=== PATIENT | female | born 1935 | race Caucasian/White ===

== ENCOUNTER 2018-03-31 05:20 | Emergency (ER) | payer MEDICARE ==
[~2018-03-31] VITALS: Ht 157.5 cm; Wt 77.6 kg
[~2018-03-31 05:20] MED LIST: ASPI-482 PO; CYAN100072 PO; DONE5TAB7 PO; GUAR1PAC2 PO; LEVO100T5 PO; LOSA1TAB22 PO; LOVA40TA2 PO; MEMA28CA PO; VERA180C4 PO
[2018-03-31] MEDS ORDERED: LORA10TA3 PO (06:21)
[2018-03-31] MEDS ORDERED: FURO-68 PO (06:28)
[2018-03-31] MEDS ORDERED: BUDE10.2 IH (06:28)
[2018-03-31] MEDS ORDERED: DIGO125T PO (06:28)
[2018-03-31] MEDS ORDERED: RIVA15TA PO (06:28)
[2018-03-31] MEDS ORDERED: ALBU2.5V5 NEB (06:28)
[2018-03-31] MEDS ORDERED: SIMV10TA3 PO (06:28)
[2018-03-31] MEDS ORDERED: TIOT18CA IH (06:28)
[2018-03-31] MEDS ORDERED: LOSA1TAB22 PO (06:41)
[2018-03-31] MEDS ORDERED: MEMA10TA PO (06:41)
[2018-03-31] MEDS ORDERED: LOVA40TA2 PO (06:41)
--- NOTE | 2018-03-31 06:50 | PHYS DOC ---
Past Medical History Past Medical History: High Cholesterol, Hypertension Past Surgical History: Appendectomy, Hysterectomy Alcohol Use: None Drug Use: None Adult General Chief Complaint Chief Complaint: [facility] HPI Patient is a 82 year old female was presenting with cough 1 week last 2 days it is more yellow sputum she feels lightheaded when she coughs a lot no chest pain no fever that she knows of she also loses some urine with coughing because the cough is becoming more severe so the son wanted her to come in to get checked out. Patient does not smoke and really never has. Symptoms are mild and slowly getting worse son did have some similar symptoms earlier Review of Systems Review of Systems Constitutional: Denies fever or chills [] Eyes: Denies change in visual acuity, redness, or eye pain [] Cardiovascular: No additional information not addressed in HPI [] GI: Denies abdominal pain, nausea, vomiting, bloody stools or diarrhea [] Musculoskeletal: Denies back pain or joint pain [] Integument: Denies rash or skin lesions [] Neurologic: Denies headache, focal weakness or sensory changes [] Endocrine: Denies polyuria or polydipsia [] All other systems were reviewed and found to be within normal limits, except as documented in this note. Allergies Allergies Allergies Coded Allergies Type Severity Reaction Last Updated Verified NSAIDS (Non-Steroidal Anti-Inflamma Adverse Reaction Intermediate renal disease 12/10/14 No acetaminophen Adverse Reaction Intermediate confusion able to take lortab and oxycontin 12/10/14 Yes morphine Adverse Reaction Intermediate confusion 12/10/14 No oxycodone Adverse Reaction Intermediate confusion able to take lortab and oxycontin 12/10/14 Yes tramadol Adverse Reaction Intermediate confusion 12/10/14 No Physical Exam Physical Exam Constitutional: Well developed, well nourished, no acute distress, non-toxic appearance. [] HENT: Normocephalic, atraumatic, bilateral external ears normal, oropharynx moist, no oral exudates, nose normal. [] Eyes: PERRLA, EOMI, conjunctiva normal, no discharge. [] Neck: Normal range of motion, no tenderness, supple, no stridor. [] Cardiovascular:Heart rate regular rhythm, no murmur [] Lungs & Thorax: Lungs are clear bilaterally Abdomen: Normal, soft, no tenderness, no masses, no pulsatile masses. [] Skin: Warm, dry, no erythema, no rash. [] Back: No tenderness, no CVA tenderness. [] Extremities: No tenderness, no cyanosis, no clubbing, ROM intact, no edema. [] Neurologic: Alert and oriented X 3, normal motor function, normal sensory function, no focal deficits noted. [] Psychologic: Affect normal, judgement normal, mood normal. [] Current Patient Data Vital Signs Vital Signs Date Time Temp Pulse Resp B/P (MAP) Pulse Ox O2 Delivery O2 Flow Rate FiO2 03/31/18 05:30 97.9 88 20 158/79 (105) 96 Room Air 97.9 Lab Values Laboratory Tests Test 03/31/18 07:30 White Blood Count 12.4 x10^3/uL (4.0-11.0) H Red Blood Count 4.14 x10^6/uL (3.50-5.40) Hemoglobin 13.1 g/dL (12.0-15.5) Hematocrit 38.8 % (36.0-47.0) Mean Corpuscular Volume 94 fL (79-100) Mean Corpuscular Hemoglobin 32 pg (25-35) Mean Corpuscular Hemoglobin Concent 34 g/dL (31-37) Red Cell Distribution Width 13.0 % (11.5-14.5) Platelet Count 328 x10^3/uL (140-400) Neutrophils (%) (Auto) 69 % (31-73) Lymphocytes (%) (Auto) 22 % (24-48) L Monocytes (%) (Auto) 7 % (0-9) Eosinophils (%) (Auto) 2 % (0-3) Basophils (%) (Auto) 1 % (0-3) Neutrophils # (Auto) 8.5 x10^3uL (1.8-7.7) H Lymphocytes # (Auto) 2.7 x10^3/uL (1.0-4.8) Monocytes # (Auto) 0.8 x10^3/uL (0.0-1.1) Eosinophils # (Auto) 0.2 x10^3/uL (0.0-0.7) Basophils # (Auto) 0.1 x10^3/uL (0.0-0.2) Sodium Level 138 mmol/L (136-145) Potassium Level 3.4 mmol/L (3.5-5.1) L Chloride Level 99 mmol/L (98-107) Carbon Dioxide Level 29 mmol/L (21-32) Anion Gap 10 (6-14) Blood Urea Nitrogen 23 mg/dL (7-20) H Creatinine 1.3 mg/dL (0.6-1.0) H Estimated GFR (Cockcroft-Gault) 39.3 BUN/Creatinine Ratio 18 (6-20) Glucose Level 145 mg/dL (70-99) H Calcium Level 10.7 mg/dL (8.5-10.1) H Total Bilirubin 0.5 mg/dL (0.2-1.0) Aspartate Amino Transferase (AST) 19 U/L (15-37) Alanine Aminotransferase (ALT) 23 U/L (14-59) Alkaline Phosphatase 75 U/L (46-116) Troponin I Quantitative < 0.017 ng/mL (0.000-0.055) JO-Mna-N-Type Natriuretic Peptide 70 pg/mL (0-449) Total Protein 7.7 g/dL (6.4-8.2) Albumin 3.6 g/dL (3.4-5.0) Albumin/Globulin Ratio 0.9 (1.0-1.7) L Laboratory Tests 03/31/18 07:30 Laboratory Tests 03/31/18 07:30 EKG EKG [] Interpretation Time: Normal sinus rhythm rate of 79 no obvious acute ischemic changes noted the intervals are normal this was interpreted by me the time of encounter there were some nonspecific changes diffusely Radiology/Procedures Radiology/Procedures [] Impressions: Comparison is made to a study from 11/18/2014. There is chronic elevation of the right hemidiaphragm. The heart size is normal. There is calcific plaquing of the aorta. The pulmonary vascularity is normal. No pulmonary infiltrate is seen. There is no evidence of pleural fluid. IMPRESSION: No acute cardiopulmonary abnormality is detected. Electronically signed by: Uche Zapien MD (03/31/2018 7:41 AM) [facility] DICTATED and SIGNED BY: UCHE ZAPIEN MD DATE: 03/31/18 0739 Course & Med Decision Making Course & Med Decision Making Pertinent Labs and Imaging studies reviewed. (See chart for details) []This is an 82-year-old female with the above past medical history who is presenting with 2 days of cough occasional yellow sputum and also some what sounds like stress incontinence with coughing. Lungs are essentially clear chest x-ray negative acute. Patient has normal oxygenation she is breathing comfortably in the emergency room her lab work is essentially unremarkable except for mild renal insufficiency she looks a little dry and encouraged oral hydration Tessalon Perles given return precautions discussed We specifically discussed the possibility of worsening condition and she has fever or worsening shortness of breath she might have to come back for antibiotics but at this time I did not feel that they were indicated in light of the side effect profile and SON agrees Dragon Disclaimer Dragon Disclaimer This electronic medical record was generated, in whole or in part, using a voice recognition dictation system. Departure Departure Impression: Primary Impression: Cough Disposition: 01 HOME, SELF-CARE Condition: STABLE Referrals: SHANI CARDENAS MD (PCP) Scripts Benzonatate (TESSALON PERLE) 100 Mg Capsule 1 CAP PO TID, #21 CAP Prov: ISAAC BOOTHE MD 03/31/18 ISAAC BOOTHE MD Mar 31, 2018 06:50
--- NOTE | 2018-03-31 07:16 | EKG ---
[facility] [address] [place] [address] Test Date: 2018-03-31 Test Time: 06:50:40 Pat Name: PIETRO WATKINS Department: Room: Gender: F Content Strategist: : 1935 Requested By: ISAAC BOOTHE Order Number: [id number] Reading MD: Amador Santiago MD Measurements Intervals [place] Rate: 79 P: 52 [place]: 176 QRS: -38 QRSD: 80 T: 39 QT: 380 QTc: 437 Interpretive Statements SINUS RHYTHM INFERIOR INFARCT Electronically Signed On 04-04-2018 11:52:43 CDT by Amador Santiago MD
--- NOTE | 2018-03-31 07:44 | RAD ---
Portable chest, 03/31/2018: HISTORY: Cough Comparison is made to a study from 11/18/2014. There is chronic elevation of the right hemidiaphragm. The heart size is normal. There is calcific plaquing of the aorta. The pulmonary vascularity is normal. No pulmonary infiltrate is seen. There is no evidence of pleural fluid. IMPRESSION: No acute cardiopulmonary abnormality is detected. Electronically signed by: Uche Zapien MD (03/31/2018 7:41 AM) [facility]
[2018-03-31 07:56] LABS: BASO # 0.1 x10^3/uL (0.0-0.2); BASO % 1 % (0-3); EOS # 0.2 x10^3/uL (0.0-0.7); EOS % 2 % (0-3); HEMATOCRIT 38.8 % (36.0-47.0); HEMOGLOBIN 13.1 g/dL (12.0-15.5); LYMPH # 2.7 x10^3/uL (1.0-4.8); LYMPH % 22 % (24-48); MEAN CORPUSCULAR HEMOGLOBIN 32 pg (25-35); MEAN CORPUSCULAR HGB CONC 34 g/dL (31-37); MEAN CORPUSCULAR VOLUME 94 fL (79-100); MONO # 0.8 x10^3/uL (0.0-1.1); MONO % 7 % (0-9); NEUT # 8.5 x10^3uL (1.8-7.7); NEUT % 69 % (31-73); PLATELET COUNT 328 x10^3/uL (140-400); RED BLOOD COUNT 4.14 x10^6/uL (3.50-5.40); WHITE BLOOD COUNT 12.4 x10^3/uL (4.0-11.0)
[2018-03-31 07:59] LABS: CALCIUM 10.7 mg/dL (8.5-10.1); CREATININE 1.3 mg/dL (0.6-1.0); GFR 39.3; POTASSIUM 3.4 mmol/L (3.5-5.1)
[2018-03-31 08:03] LABS: ALBUMIN 3.6 g/dL (3.4-5.0); ALBUMIN/GLOBULIN RATIO 0.9 (1.0-1.7); TOTAL BILIRUBIN 0.5 mg/dL (0.2-1.0); TOTAL PROTEIN 7.7 g/dL (6.4-8.2)
[2018-03-31 08:20] VITALS: BP 144/69
[2018-03-31] MEDS ORDERED: BENZ100C PO (08:36)
== END 2018-03-31 08:50 | disposition home or self-care (01) ==
LOC: ER 05:20
DX: R05 Cough (principal); R42 Dizziness and giddiness; I10 Essential (primary) hypertension; E78.00 Pure hypercholesterolemia, unspecified; Z88.5 Allergy status to narcotic agent; Z88.6 Allergy status to analgesic agent; Z88.8 Allergy status to other drugs, medicaments and biological substances
CPT/HCPCS: 36415; 71045; 80053; 83880; 84484; 85025; 93005; 99285-25

== ENCOUNTER 2021-06-07 22:12 | Inpatient (IN) | payer MEDICARE, OTHER ==
[~2021-06-07] VITALS: Ht 154.9 cm; Wt 73.7 kg
[~2021-06-07 22:12] MED LIST changes: +ALBU2.5V5 NEB; +BENZ100C PO; +BUDE10.2 IH; +DIGO125T3 PO; +FURO-68 PO; +LORA10TA3 PO; +MEMA10TA PO; +RIVA15TA PO; +SIMV10TA15 PO; +TIOT18CA IH
--- NOTE | 2021-06-07 23:19 | PHYS DOC ---
Past Medical History Past Medical History: High Cholesterol, Hypertension Additional Past Medical Histor: DEMENTIA Past Surgical History: Appendectomy, Hysterectomy Smoking Status: Never Smoker Alcohol Use: None Drug Use: None General Adult EDM: Chief Complaint: SHOULDER INJURY HPI: HPI: History of present illness limited due to altered mental status secondary to dementia. Daughter in room providing most of history. Patient is an 85-year-old female with past medical history of dementia, hypertension, hyperlipidemia, CKD presenting for mechanical fall earlier today. Daughter states that patient was unloading her suitcase and fell over and hit her right shoulder on something. This was unwitnessed, but the son saw her take a few steps and sit on the couch. Patient is complaining of right shoulder pain that is dull in nature and worse with movement. She denies chest pain, shortness of breath, and loss of consciousness. Denies use of blood thinners and denies hitting her head. Review of Systems: Review of Systems: Constitutional: Denies fever or chills HENT: Denies nasal congestion or sore throat Respiratory: Denies cough or shortness of breath Cardiovascular: Denies chest pain or palpitations GI: Denies abdominal pain, nausea, or vomiting : Denies dysuria or hematuria Musculoskeletal: Denies back pain; reports shoulder pain Integument: Denies rash or skin lesions Neurologic: Denies headache, focal weakness or sensory changes Complete systems were reviewed and found to be within normal limits, except as documented in this note. Heart Score: C/O Chest Pain: No Allergies: Allergies: Allergies Coded Allergies Type Severity Reaction Last Updated Verified NSAIDS (Non-Steroidal Anti-Inflamma Adverse Reaction Intermediate renal disease 12/10/14 No acetaminophen Adverse Reaction Intermediate confusion able to take lortab and oxycontin 12/10/14 Yes morphine Adverse Reaction Intermediate confusion 12/10/14 No oxycodone Adverse Reaction Intermediate confusion able to take lortab and oxycontin 12/10/14 Yes tramadol Adverse Reaction Intermediate confusion 12/10/14 No Physical Exam: PE: Constitutional: Well developed, well nourished, no acute distress, non-toxic appearance HENT: Normocephalic, atraumatic Eyes: EOMI, conjunctiva normal, no discharge Neck: No midline tenderness to palpation, supple Lungs & Thorax: No respiratory distress, equal chest rise and fall Abdomen: Soft, no tenderness Skin: Warm, dry, no erythema, no rash Back: No tenderness, no CVA tenderness Extremities: No tenderness, no edema, able to move all extremities, +2/2 radial pulses b/l Neurologic: Alert and oriented X 2, secondary to dementia no focal deficits n oted Psychologic: Affect normal, judgment normal Current Patient Data: Vital Signs: Vital Signs Date Time Temp Pulse Resp B/P (MAP) Pulse Ox O2 Delivery O2 Flow Rate FiO2 06/07/21 22:15 98.1 104 16 169/73 (105) 98 Room Air 98.1 EKG: EKG: Completed at 01:24, sinus tachycardia at a rate of 105 bpm, no acute ST segment changes, QRS 74 ms, QT/QTc 340/453 ms Radiology/Procedures: Radiology/Procedures: PROCEDURE: CT HEAD AND CERVICAL SPINE [facility] Compliance Statement: One or more of the following individualized dose reduction techniques were utilized for this examination: 1. Automated exposure control 2. Adjustment of the mA and/or kV according to patient size 3. Use of iterative reconstruction technique CT HEAD AND CERVICAL SPINE WITHOUT CONTRAST History: Reason: pain s/p fall Comparison: None. Procedure: Axial images are obtained of the head from the skull base through the vertex without IV contrast. Noncontrast helical CT of the cervical spine was performed. Axial, sagittal, and coronal reconstructions were obtained. Findings: The ventricles and sulci are prominent, consistent with age-related cerebral atrophy. There is moderate periventricular white matter hypoattenuation. This is a nonspecific finding but is commonly due to chronic small vessel ischemic disease in a patient of this age. No mass-effect, midline shift, hemorrhage or obvious acute infarction is identified. Basilar cisterns are patent. Bone windows demonstrate no significant calvarial abnormality. The visualized paranasal sinuses are clear. Mastoid air cells are well aerated. There is no evidence of acute fracture or acute malalignment of the cervical sp ine. There is moderate multilevel facet hypertrophy. The alignment is maintained. Vacuum disc phenomenon of C6/C7. There is acute traumatic mildly comminuted, nondisplaced fracture of the medial right clavicle. No sternoclavicular dislocation is appreciated. Bilateral carotid artery calcifications. The visualized lung apices are clear. IMPRESSION: 1. No acute intracranial abnormality. 2. No acute fracture of the cervical spine. 3. Acute traumatic mildly comminuted, nondisplaced fracture of the medial clavicle. PROCEDURE: SHOULDER 2+V RIGHT XR SHOULDER_RIGHT 2+ VIEWS Clinical Indication: Reason: pain s/p fall / Spl. Instructions: / History: Comparison: None. Findings: There is acute traumatic comminuted fracture of the proximal humeral head. There is a transverse fracture line that is mildly impacted of the surgical neck. There is fracture of the greater tuberosity. Additional fracture lines of the humeral head are suspected. There is no dislocation. Fracture of the medial clavicle noted on CT is not well appreciated radiographically. The right lung appears clear. Soft tissues unremarkable. IMPRESSION: Acute traumatic comminuted fracture of the proximal humeral head. Electronically signed by: Jayden Hollis MD (06/07/2021 11:53 PM) [facility] PROCEDURE: CHEST AP ONLY XR CHEST 1V Clinical Indication: Reason: leukocytosis, lactic acidosis, eval for pneumonia / Comparison: AP chest March 31, 2018. Findings: The cardiomediastinal silhouette is normal. Linear opacities in the bilateral lung bases may be discoid atelectasis or scarring. There is no pneumothorax. No pleural effusion is appreciated. There is acute fracture of the proximal right humerus, better evaluated on dedicated radiographs. IMPRESSION: Bibasilar discoid atelectasis or scarring. Course & Med Decision Making: Course & Med Decision Making Pertinent Labs and Imaging studies reviewed. (See chart for details) Patient is an 85-year-old female with past medical history of dementia, hyperlipidemia, hypertension presenting for mechanical fall in which she injured her right shoulder. CT head and neck showed no acute intracranial abnormality, no acute cervical spine fracture, nondisplaced medial clavicle fracture on the right. Shoulder x-ray demonstrated comminuted fracture of the proximal humeral head on the right. Patient denied the need for any pain control medication in the ED. Patient was placed in a shoulder immobilizer. Will give referral for Ortho follow-up. After initial evaluation, family reports that the patient has been urinating more frequently and has had recent worsening memory. Based on this we did a more thorough work-up. EKG showed no acute ST segment changes. CBC showed a leukocytosis of her than 20. Lactic acid was 2.8. 1 L normal saline was started at this time with empiric antibiotics. Troponin was 54. 324 mg of aspirin given. Urinalysis showed some leukcyte esterase along with bacteria but largely unremarkable. Chest XR and chest CT showed bibasilar discoid atelectasis or scarring. Patient requiring admission for further evaluation and treatment. Discussed with Dr. Machuca (hospitalist) who is in agreement with admission. Discussed findings and plan with patient, who acknowledges understanding and agreement. Dragon Disclaimer: Dragon Disclaimer: This electronic medical record was generated, in whole or in part, using a voice recognition dictation system. Departure Departure Impression: Primary Impression: Fall Qualified Codes: W19.XXXA - Unspecified fall, initial encounter Additional Impression: Fracture of humeral head, right, closed Qualified Codes: S42.291A - Other displaced fracture of upper end of right humerus, initial encounter for closed fracture Disposition: 01 HOME / SELF CARE / HOMELESS Condition: STABLE Referrals: SHANI CARDENAS MD (PCP) JONATHAN MIHCAEL DO Patient Instructions: Fall Prevention and Home Safety, [id number], Shoulder Fracture (Proximal Humerus or Glenoid)-SportsMed, Shoulder Immobilizer KHLOE PACE DO Jun 07, 2021 23:19
--- NOTE | 2021-06-07 23:22 | RAD ---
PQRS Compliance Statement: One or more of the following individualized dose reduction techniques were utilized for this examinat ion: 1. Automated exposure control 2. Adjustment of the mA and/or kV according to patient size 3. Use of iterative reconstruction technique CT HEAD AND CERVICAL SPINE WITHOUT CONTRAST History: Reason: pain s/p fall Comparison: None. Procedure: Axial images are obtained of the head from the skull base through the vertex without IV co ntrast. Noncontrast helical CT of the cervical spine was performed. Axial, sagittal, and coronal rec onstructions were obtained. Findings: The ventricles and sulci are prominent, consistent with age-related cerebral atrophy. There is moder ate periventricular white matter hypoattenuation. This is a nonspecific finding but is commonly due to chronic small vessel ischemic disease in a patient of this age. No mass-effect, midline shift, hemorrhage or obvious acute infarction is identified. Basilar cistern s are patent. Bone windows demonstrate no significant calvarial abnormality. The visualized paranasal sinuses are clear. Mastoid air cells are well aerated. There is no evidence of acute fracture or acute malalignment of the cervical spine. There is moderate multilevel facet hypertrophy. The alignment is maintained. Vacuum disc phenomenon o f C6/C7. There is acute traumatic mildly comminuted, nondisplaced fracture of the medial right clavicle. No st ernoclavicular dislocation is appreciated. Bilateral carotid artery calcifications. The visualized lung apices are clear. IMPRESSION: 1. No acute intracranial abnormality. 2. No acute fracture of the cervical spine. 3. Acute traumatic mildly comminuted, nondisplaced fracture of the medial clavicle. Electronically signed by: Jayden Hollis MD (06/07/2021 11:19 PM) [facility]
--- NOTE | 2021-06-07 23:55 | RAD ---
XR SHOULDER_RIGHT 2+ VIEWS Clinical Indication: Reason: pain s/p fall / Spl. Instructions: / History: Comparison: None. Findings: There is acute traumatic comminuted fracture of the proximal humeral head. There is a transverse frac ture line that is mildly impacted of the surgical neck. There is fracture of the greater tuberosity. Additional fracture lines of the humeral head are suspected. There is no dislocation. Fracture of the medial clavicle noted on CT is not well appreciated radiographically. The right lung appears clear. Soft tissues unremarkable. IMPRESSION: Acute traumatic comminuted fracture of the proximal humeral head. Electronically signed by: Jayden Hollis MD (06/07/2021 11:53 PM) [facility]
[2021-06-08 01:37] LABS: HEMATOCRIT 38.6 % (36.0-47.0); HEMOGLOBIN 13.2 g/dL (12.0-15.5); RED BLOOD COUNT 4.03 x10^6/uL (3.50-5.40); RED CELL DISTRIBUTION WIDTH 12.7 % (11.5-14.5); WHITE BLOOD COUNT 23.5 x10^3/uL (4.0-11.0)
[2021-06-08 01:39] LABS: BILIRUBIN,URINE NEGATIVE (NEG); CLARITY,URINE CLEAR; COLOR,URINE YELLOW; NITRITE,URINE NEGATIVE (NEG); PH,URINE 5.5 (<5.0-8.0); PROTEIN,URINE NEGATIVE (NEG-TRACE); UROBILINOGEN,URINE 0.2 mg/dL (0.2 mg/dL)
[2021-06-08 01:47] LABS: CALCIUM 10.4 mg/dL (8.5-10.1); CREATININE 1.6 mg/dL (0.6-1.0); GFR 30.7; POTASSIUM 3.7 mmol/L (3.5-5.1)
[2021-06-08 01:53] LABS: ALBUMIN 3.8 g/dL (3.4-5.0); ALBUMIN/GLOBULIN RATIO 1.1 (1.0-1.7); MAGNESIUM 1.8 mg/dL (1.8-2.4); TOTAL BILIRUBIN 0.6 mg/dL (0.2-1.0); TOTAL PROTEIN 7.3 g/dL (6.4-8.2)
[2021-06-08 01:56] LABS: BACTERIA,URINE MANY /HPF (0-FEW); RBC,URINE OCC /HPF (0-2)
[2021-06-08 01:57] LABS: HYALINE CASTS, URINE OCCASIONAL /HPF
[2021-06-08] MEDS ORDERED: cefTRIAXone IV Push 1 GM VIAL. IVP ONE (03:00)
[2021-06-08] MEDS ORDERED: ONDANSETRON PF 4 MG/2 ML VIAL. IVP PRN (03:00)
[2021-06-08] MEDS ORDERED: IV NORMAL SALINE 1000ML BAG 1,000 ML IV ONE (03:00)
--- NOTE | 2021-06-08 03:18 | EKG ---
[facility] [address] [place] [address] Test Date: 2021-06-08 Test Time: 01:24:04 Pat Name: PIETRO WATKINS Department: Room: Gender: F Telephoner: STACIA : 1935 Requested By: KHLOE PACE Order Number: [id number] Reading MD: Prasanna Frey Measurements Intervals [place] Rate: 105 P: 44 MS: 168 QRS: -33 QRSD: 74 T: 62 QT: 340 QTc: 453 Interpretive Statements SINUS TACHYCARDIA ABNORMAL LEFT AXIS DEVIATION QRS(T) CONTOUR ABNORMALITY CONSISTENT WITH INFERIOR INFARCT PROBABLY OLD ST & T ABNORMALITY, CONSIDER HIGH LATERAL ISCHEMIA OR LEFT VENTRICULAR STRAIN ABNORMAL ECG RI6.02 Electronically Signed On 06-08-2021 8:59:12 IT SECURITY CONSULTING DIRECTOR by Prasanna Frey
[2021-06-08] MEDS: ACETAMINOPHEN 325 MG TABLET. PO PRN ×2 (03:25→21:16)
--- NOTE | 2021-06-08 03:27 | RAD ---
XR CHEST 1V Clinical Indication: Reason: leukocytosis, lactic acidosis, eval for pneumonia / Comparison: AP chest March 31, 2018. Findings: The cardiomediastinal silhouette is normal. Linear opacities in the bilateral lung bases may be disco id atelectasis or scarring. There is no pneumothorax. No pleural effusion is appreciated. There is ac philip fracture of the proximal right humerus, better evaluated on dedicated radiographs. IMPRESSION: Bibasilar discoid atelectasis or scarring. Electronically signed by: Jayden Hollis MD (06/08/2021 3:25 AM) [facility]
[2021-06-08] MEDS ORDERED: ASPIRIN ENTERIC COATED 325 MG TABLET.DR. PO ONE (03:30)
--- NOTE | 2021-06-08 03:59 | RAD ---
PQRS Compliance Statement: One or more of the following individualized dose reduction techniques were utilized for this examinat ion: 1. Automated exposure control 2. Adjustment of the mA and/or kV according to patient size 3. Use of iterative reconstruction technique CT THORAX WO Clinical Indication: Reason: weakness, abnormal CXR, leukocytosis / Spl. Instructions: / History: Comparison: None. TECHNIQUE: Helical CT imaging of the chest is performed without IV contrast. Findings: There is severe calcific aortic valve stenosis. There is ectasia of the ascending thoracic aorta, maldonado meter is 3.6 cm. Pulmonary trunk is normal caliber. Mild coronary artery disease. Cardiac size is nor mal, no pericardial effusion. There is elevation of right hemidiaphragm. No pleural effusion or pneumothorax is seen. Respiratory m otion artifact limits evaluation of the lungs. The central airways are patent. Minimal atelectasis or scarring in the bilateral lung bases. The visualized upper abdomen is unremarkable. There is redemonstrated mildly comminuted, nondisplaced fracture of the medial right clavicle. There is surrounding induration. There is comminuted fracture of the proximal right humerus, better evaluat ed on dedicated radiographs. No acute displaced rib fracture is identified. The thoracic spine alignm ent is maintained. Mild right convexity thoracic scoliosis. IMPRESSION: 1. There is minimal bibasilar atelectasis or scarring. 2. Redemonstrated fractures of the proximal right humerus and the medial right clavicle. Electronically signed by: Jayden Hollis MD (06/08/2021 3:56 AM) [facility]
[2021-06-08 04:25] VITALS: BP 143/67
--- NOTE | 2021-06-08 06:05 | NUR ---
RN walking by pt room and found pt at end of bed - had pulled off immobilizer, pulled out IV, was unaware of where she was. RN assisted pt back to bed. Left arm cleaned up from where IV bled when pulled out. Pt reassured and reoriented multiple times as being put back in bed. Bed alarm set. Will continue to monitor
[2021-06-08 07:00] VITALS: BP 136/61
--- NOTE | 2021-06-08 07:57 | PDOC1 ---
History and Physical Date of Admission Date of Admission DATE: 06/08/21 TIME: 07:57 History of Present Illness History of Present Illness MS. Spicer is pleasant and talkative this AM, demetnia noted from prior note . Daughter was in room last night in ER and was providing most of history. Patient is an 85-year-old female with past medical history of dementia, hypertension, hyperlipidemia, CKD presenting for mechanical fall yesterrady, fell hard on her right shoudler, is now in a sling with support to lateral movemen. Patient is complaining of right shoulder pain that is dull in nature and worse with movement. she is aware she inthe the hospital, knows this is [facility], but unsure on year, date, and city., She denies chest pain Past Medical History Cardiovascular: HTN, Hyperlipidemia Endocrine: Hypothyroidism, Osteoporosis, Other Past Surgical History Past Surgical History: Appendectomy Family History Family History: Heart Disease, Hypertension Social History Smoke: No ALCOHOL: none Drugs: None Current Problem List Problem List Problems Medical Problems: (1) Fall Status: Acute (2) Fracture of humeral head, right, closed Status: Acute Current Medications Current Medications Current Medications Sodium Chloride 1,000 ml @ 1,000 mls/hr 1X ONCE IV Last administered on 06/08/21at 03:25; Start 06/08/21 at 03:00; Stop 06/08/21 at 03:59; Status DC Ceftriaxone Sodium (Rocephin) 1 gm 1X ONCE IVP Last administered on 06/08/21at 03:25; Start 06/08/21 at 03:00; Stop 06/08/21 at 03:01; Status DC Aspirin (Ecotrin) 325 mg 1X ONCE PO Last administered on 06/08/21at 03:25; Start 06/08/21 at 03:30; Stop 06/08/21 at 03:31; Status DC Ondansetron HCl (Zofran) 4 mg PRN Q8HRS PRN IVP NAUSEA/VOMITING 1ST CHOICE; Start 06/08/21 at 03:00; Stop 06/09/21 at 02:59 Acetaminophen (Tylenol) 650 mg PRN Q4HRS PRN PO FEVER > 100.3'F Last administered on 06/08/21at 03:25; Start 06/08/21 at 03:00; Stop 06/09/21 at 02:59 Active Scripts Active Tessalon Perle (Benzonatate) 100 Mg Capsule 1 Cap PO TID Reported Namenda (Memantine Hcl) 10 Mg Tablet 10 Mg PO DAILY Lovastatin 40 Mg Tablet 40 Mg PO HS Losartan-Hctz 100-25 Mg Tab (Losartan/Hydrochlorothiazide) 1 Each Tablet 1 Each PO DAILY B-12 (Cyanocobalamin (Vitamin B-12)) 1,000 Mcg Tablet 1,000 Mcg PO DAILY Benefiber (Guar Gum) 1 Each Packet 1 Each PO DAILY Donepezil Hcl 5 Mg Tablet 5 Mg PO HS Levothyroxine Sodium 100 Mcg Tablet 100 Mcg PO DAILYAC Allergies Allergies: Coded Allergies: NSAIDS (Non-Steroidal Anti-Inflamma (Unverified Adverse Reaction, Intermediate, renal disease, 12/10/14) morphine (Unverified Adverse Reaction, Intermediate, confusion, 12/10/14) oxycodone (Verified Adverse Reaction, Intermediate, confusion able to take lortab and oxycontin, 12/10/14) tramadol (Unverified Adverse Reaction, Intermediate, confusion, 12/10/14) ROS Review of System per family, she had been more confused recently, otherwise well, ROS neg Physical Exam General: Alert, Cooperative, No acute distress, Other (disoriented 2/4) Lungs: Normal air movement Heart: S1S2, no murmurs Abdomen: Normal bowel sounds, Soft Extremities: No cyanosis Neuro: Normal gait, Cranial nerves 3-12 NL Vitals Vitals Vital Signs Date Time Temp Pulse Resp B/P (MAP) Pulse Ox O2 Delivery O2 Flow Rate FiO2 06/08/21 04:25 97.6 84 18 143/67 (92) 97 Room Air 97.6 Labs Labs Laboratory Tests Test 06/08/21 01:15 06/08/21 01:20 06/08/21 04:00 06/08/21 04:02 Urine Collection Type U cath Urine Color Yellow Urine Clarity Clear Urine pH 5.5 (<5.0-8.0) Urine Specific [place] 1.020 (1.000-1.030) Urine Protein Negative mg/dL (NEG-TRACE) Urine Glucose (UA) Negative mg/dL (NEG) Urine Ketones (Stick) Negative mg/dL (NEG) Urine Blood Negative (NEG) Urine Nitrite Negative (NEG) Urine Bilirubin Negative (NEG) Urine Urobilinogen Dipstick 0.2 mg/dL (0.2 mg/dL) Urine Leukocyte Esterase Small (NEG) Urine RBC Occ /HPF (0-2) Urine WBC 1-4 /HPF (0-4) Urine Squamous Epithelial Cells Few /LPF Urine Bacteria Many /HPF (0-FEW) Urine Hyaline Casts Occasional /HPF Urine Mucus Slight /LPF White Blood Count 23.5 x10^3/uL (4.0-11.0) Red Blood Count 4.03 x10^6/uL (3.50-5.40) Hemoglobin 13.2 g/dL (12.0-15.5) Hematocrit 38.6 % (36.0-47.0) Mean Corpuscular Volume 96 fL (79-100) Mean Corpuscular Hemoglobin 33 pg (25-35) Mean Corpuscular Hemoglobin Concent 34 g/dL (31-37) Red Cell Distribution Width 12.7 % (11.5-14.5) Platelet Count 278 x10^3/uL (140-400) Sodium Level 139 mmol/L (136-145) Potassium Level 3.7 mmol/L (3.5-5.1) Chloride Level 102 mmol/L (98-107) Carbon Dioxide Level 24 mmol/L (21-32) Anion Gap 13 (6-14) Blood Urea Nitrogen 30 mg/dL (7-20) Creatinine 1.6 mg/dL (0.6-1.0) Estimated GFR (Cockcroft-Gault) 30.7 BUN/Creatinine Ratio 19 (6-20) Glucose Level 148 mg/dL (70-99) Lactic Acid Level 2.8 mmol/L (0.4-2.0) 1.3 mmol/L (0.4-2.0) Calcium Level 10.4 mg/dL (8.5-10.1) Magnesium Level 1.8 mg/dL (1.8-2.4) Total Bilirubin 0.6 mg/dL (0.2-1.0) Aspartate Amino Transf (AST/SGOT) 20 U/L (15-37) Alanine Aminotransferase (ALT/SGPT) 22 U/L (14-59) Alkaline Phosphatase 90 U/L (46-116) Creatine Kinase 201 U/L (26-192) Creatine Kinase MB (Mass) 1.4 ng/mL (0.0-3.6) Creatine Kinase MB Relative Index 0.7 % (0-4) Troponin I High Sensitivity 54 ng/L (4-50) 59 ng/L (4-50) Total Protein 7.3 g/dL (6.4-8.2) Albumin 3.8 g/dL (3.4-5.0) Albumin/Globulin Ratio 1.1 (1.0-1.7) SARS-CoV-2 Antigen (Rapid) Negative (NEGATIVE) Laboratory Tests Test 06/08/21 01:15 06/08/21 01:20 06/08/21 04:00 06/08/21 04:02 Urine Collection Type U cath Urine Color Yellow Urine Clarity Clear Urine pH 5.5 (<5.0-8.0) Urine Specific [place] 1.020 (1.000-1.030) Urine Protein Negative mg/dL (NEG-TRACE) Urine Glucose (UA) Negative mg/dL (NEG) Urine Ketones (Stick) Negative mg/dL (NEG) Urine Blood Negative (NEG) Urine Nitrite Negative (NEG) Urine Bilirubin Negative (NEG) Urine Urobilinogen Dipstick 0.2 mg/dL (0.2 mg/dL) Urine Leukocyte Esterase Small (NEG) Urine RBC Occ /HPF (0-2) Urine WBC 1-4 /HPF (0-4) Urine Squamous Epithelial Cells Few /LPF Urine Bacteria Many /HPF (0-FEW) Urine Hyaline Casts Occasional /HPF Urine Mucus Slight /LPF White Blood Count 23.5 x10^3/uL (4.0-11.0) Red Blood Count 4.03 x10^6/uL (3.50-5.40) Hemoglobin 13.2 g/dL (12.0-15.5) Hematocrit 38.6 % (36.0-47.0) Mean Corpuscular Volume 96 fL (79-100) Mean Corpuscular Hemoglobin 33 pg (25-35) Mean Corpuscular Hemoglobin Concent 34 g/dL (31-37) Red Cell Distribution Width 12.7 % (11.5-14.5) Platelet Count 278 x10^3/uL (140-400) Sodium Level 139 mmol/L (136-145) Potassium Level 3.7 mmol/L (3.5-5.1) Chloride Level 102 mmol/L (98-107) Carbon Dioxide Level 24 mmol/L (21-32) Anion Gap 13 (6-14) Blood Urea Nitrogen 30 mg/dL (7-20) Creatinine 1.6 mg/dL (0.6-1.0) Estimated GFR (Cockcroft-Gault) 30.7 BUN/Creatinine Ratio 19 (6-20) Glucose Level 148 mg/dL (70-99) Lactic Acid Level 2.8 mmol/L (0.4-2.0) 1.3 mmol/L (0.4-2.0) Calcium Level 10.4 mg/dL (8.5-10.1) Magnesium Level 1.8 mg/dL (1.8-2.4) Total Bilirubin 0.6 mg/dL (0.2-1.0) Aspartate Amino Transf (AST/SGOT) 20 U/L (15-37) Alanine Aminotransferase (ALT/SGPT) 22 U/L (14-59) Alkaline Phosphatase 90 U/L (46-116) Creatine Kinase 201 U/L (26-192) Creatine Kinase MB (Mass) 1.4 ng/mL (0.0-3.6) Creatine Kinase MB Relative Index 0.7 % (0-4) Troponin I High Sensitivity 54 ng/L (4-50) 59 ng/L (4-50) Total Protein 7.3 g/dL (6.4-8.2) Albumin 3.8 g/dL (3.4-5.0) Albumin/Globulin Ratio 1.1 (1.0-1.7) SARS-CoV-2 Antigen (Rapid) Negative (NEGATIVE) Images Images XRAY Findings: There is acute traumatic comminuted fracture of the proximal humeral head. There is a transverse fracture line that is mildly impacted of the surgical neck. There is fracture of the greater tuberosity. Additional fracture lines of the humeral head are suspected. There is no dislocation. Fracture of the medial clavicle noted on CT is not well appreciated radiographically. The right lung appears clear. Soft tissues unremarkable. VTE Prophylaxis Ordered VTE Prophylaxis Devices: Yes VTE Pharmacological Prophylaxi: Yes Assessment/Plan Assessment/Plan Acute traumatic comminuted fracture of the proximal humeral head. dementia obesity, BMI 31 weakness SIRS, sepsis, UTI hypothyroid, htn Justifications for Admission Other Justification DANDRE SAWYER MD Jun 08, 2021 07:57
[2021-06-08] MEDS ORDERED: cefTRIAXone IV Push 1 GM VIAL. IVP SCH (09:00)
[2021-06-08] MEDS: LEVOTHYROXINE 100 MCG TABLET PO SCH (09:44)
[2021-06-08] MEDS: BENZONATATE 100 MG CAPSULE. PO SCH ×3 (09:44→21:17)
[2021-06-08] MEDS: LOSARTAN POTASSIUM 50 MG TABLET. PO SCH (09:45)
[2021-06-08] MEDS: CYANOCOBALAMIN (VITAMIN B-12) 1,000 MCG TABLET. PO SCH (09:45)
[2021-06-08] MEDS: MEMANTINE 10 MG TABLET. PO SCH (09:45)
[2021-06-08] MEDS: hydroCHLOROthiazide 25 MG TABLET PO SCH (09:45)
[2021-06-08 11:00] VITALS: BP 115/76
--- NOTE | 2021-06-08 13:00 | PDOC2 ---
TERESA BETANCOURT CERTIFIED SURGICAL TECHNICIAN 06/08/21 1300: CARDIAC CONSULT DATE OF CONSULT Date of Consult DATE: 06/08/21 TIME: 12:54 REASON FOR CONSULT Reason for Consult: Elevated troponin REFERRING PHYSICIAN Referring Physician: Dr. Ontiveros SOURCE Source: Chart review, Patient HISTORY OF PRESENT ILLNESS HISTORY OF PRESENT ILLNESS This is an 85 yo female who presented secondary to right shoulder pain secondary to fall. Patient is demented at baseline and unable to provide any meaningful information. Troponin noted to be trivially elevated, which prompted this consult. She denies any chest pain, palpitations, dizziness, diaphoresis, or SOA. PAST MEDICAL HISTORY Cardiovascular: HTN, Hyperlipidemia CENTRAL NERVOUS SYSTEM: Dementia Endocrine: Hypothyroidism PAST SURGICAL HISTORY Past Surgical History: Appendectomy, Cataract Removal, Total knee replacement (right ), Hysterectomy FAMILY HISTORY Family History: Hypertension SOCIAL HISTORY Smoke: No ALCOHOL: none Drugs: None Lives: with Family CURRENT MEDICATIONS CURRENT MEDICATIONS Current Medications Medications (Trade) Dose Ordered Sig/Shady Route PRN Reason Start Time Stop Time Status Last Admin Dose Admin Sodium Chloride 1,000 ml @ 1,000 mls/hr 1X ONCE IV 06/08/21 03:00 06/08/21 03:59 DC 06/08/21 03:25 Ceftriaxone Sodium (Rocephin) 1 gm 1X ONCE IVP 06/08/21 03:00 06/08/21 03:01 DC 06/08/21 03:25 Aspirin (Ecotrin) 325 mg 1X ONCE PO 06/08/21 03:30 06/08/21 03:31 DC 06/08/21 03:25 Acetaminophen (Tylenol) 650 mg PRN Q4HRS PRN PO FEVER > 100.3'F 06/08/21 03:00 06/09/21 02:59 06/08/21 03:25 Benzonatate (Tessalon Perle) 100 mg TID PO 06/08/21 09:00 06/08/21 09:44 Cyanocobalamin (Vitamin B-12) 1,000 mcg DAILY PO 06/08/21 09:00 06/08/21 09:45 Levothyroxine Sodium (Synthroid) 100 mcg DAILY06 PO 06/08/21 10:30 06/08/21 09:44 Memantine (Namenda) 10 mg DAILY PO 06/08/21 09:00 06/08/21 09:45 Losartan Potassium (Cozaar) 100 mg DAILY PO 06/08/21 09:00 06/08/21 09:45 Hydrochlorothiazide (Hydrodiuril) 25 mg DAILY PO 06/08/21 09:00 06/08/21 09:45 ALLERGIES ALLERGIES: Coded Allergies: NSAIDS (Non-Steroidal Anti-Inflamma (Unverified Adverse Reaction, Intermediate, renal disease, 12/10/14) morphine (Unverified Adverse Reaction, Intermediate, confusion, 12/10/14) oxycodone (Verified Adverse Reaction, Intermediate, confusion able to take lortab and oxycontin, 12/10/14) tramadol (Unverified Adverse Reaction, Intermediate, confusion, 12/10/14) ROS Review of System 14 point ROS conducted although limited due to dementia PHYSICAL EXAM General: Alert, Cooperative, No acute distress, Other (oriented to self only ) Lungs: Clear to auscultation Heart: Regular rate Abdomen: Soft, No tenderness Extremities: No edema, Other (right arm immobilizer present ) Skin: No significant lesion Neuro: Normal speech, Sensation intact Psych/Mental Status: Mood NL, Other (confused ) MUSCULOSKELETAL: Osteoarthritic changes both hands VITALS/I&O VITALS/I&O: Vital Signs Date Time Temp Pulse Resp B/P (MAP) Pulse Ox O2 Delivery O2 Flow Rate FiO2 06/08/21 11:00 98.0 76 17 115/76 (89) Room Air 95.0 98.0 06/08/21 07:00 96 I & O 06/07/21 06/07/21 06/08/21 15:00 23:00 07:00 Output Total 0 ml Balance 0 ml LABS Lab: Laboratory Tests Test 06/08/21 01:15 06/08/21 01:20 06/08/21 04:00 06/08/21 04:02 Urine Collection Type U cath Urine Color Yellow Urine Clarity Clear Urine pH 5.5 (<5.0-8.0) Urine Specific [place] 1.020 (1.000-1.030) Urine Protein Negative mg/dL (NEG-TRACE) Urine Glucose (UA) Negative mg/dL (NEG) Urine Ketones (Stick) Negative mg/dL (NEG) Urine Blood Negative (NEG) Urine Nitrite Negative (NEG) Urine Bilirubin Negative (NEG) Urine Urobilinogen Dipstick 0.2 mg/dL (0.2 mg/dL) Urine Leukocyte Esterase Small (NEG) Urine RBC Occ /HPF (0-2) Urine WBC 1-4 /HPF (0-4) Urine Squamous Epithelial Cells Few /LPF Urine Bacteria Many /HPF (0-FEW) Urine Hyaline Casts Occasional /HPF Urine Mucus Slight /LPF White Blood Count 23.5 x10^3/uL (4.0-11.0) H Red Blood Count 4.03 x10^6/uL (3.50-5.40) Hemoglobin 13.2 g/dL (12.0-15.5) Hematocrit 38.6 % (36.0-47.0) Mean Corpuscular Volume 96 fL (79-100) Mean Corpuscular Hemoglobin 33 pg (25-35) Mean Corpuscular Hemoglobin Concent 34 g/dL (31-37) Red Cell Distribution Width 12.7 % (11.5-14.5) Platelet Count 278 x10^3/uL (140-400) Sodium Level 139 mmol/L (136-145) Potassium Level 3.7 mmol/L (3.5-5.1) Chloride Level 102 mmol/L (98-107) Carbon Dioxide Level 24 mmol/L (21-32) Anion Gap 13 (6-14) Blood Urea Nitrogen 30 mg/dL (7-20) H Creatinine 1.6 mg/dL (0.6-1.0) H Estimated GFR (Cockcroft-Gault) 30.7 BUN/Creatinine Ratio 19 (6-20) Glucose Level 148 mg/dL (70-99) H Lactic Acid Level 2.8 mmol/L (0.4-2.0) H 1.3 mmol/L (0.4-2.0) Calcium Level 10.4 mg/dL (8.5-10.1) H Magnesium Level 1.8 mg/dL (1.8-2.4) Total Bilirubin 0.6 mg/dL (0.2-1.0) Aspartate Amino Transferase (AST) 20 U/L (15-37) Alanine Aminotransferase (ALT) 22 U/L (14-59) Alkaline Phosphatase 90 U/L (46-116) Creatine Kinase 201 U/L (26-192) H Creatine Kinase MB (Mass) 1.4 ng/mL (0.0-3.6) Creatine Kinase MB Relative Index 0.7 % (0-4) Troponin I High Sensitivity 54 ng/L (4-50) H 59 ng/L (4-50) H Total Protein 7.3 g/dL (6.4-8.2) Albumin 3.8 g/dL (3.4-5.0) Albumin/Globulin Ratio 1.1 (1.0-1.7) SARS-CoV-2 RNA (BRIDGET) Negative (Negative) SARS-CoV-2 Antigen (Rapid) Negative (NEGATIVE) Test 06/08/21 07:40 Troponin I High Sensitivity 54 ng/L (4-50) H Laboratory Tests 06/08/21 01:20 Laboratory Tests 06/08/21 01:20 ASSESSMENT/PLAN ASSESSMENT/PLAN 1. Traumatic mechanical fall with fractures of the proximal right humerus and the medial right clavicle. 2. Leukocytosis, lactic acidosis, UTI 3. Trivial troponin elevation; high sensitivity peak 59. type II, demand ischemia 4. Hypertension; controlled 5. Hyperlipidemia; statin 6. Dementia 7. Hypothyroidism Recommendations ASA, statin Continue current antiHTN therapy Echo to assess LV systolic function Supportive care Follow ortho recs BOBO JOSUE MD 06/08/21 1706: CARDIAC CONSULT ASSESSMENT/PLAN ASSESSMENT/PLAN Patient seen and examined I agree with our nurse practitioners assessment and plan. Traumatic mechanical fall with fractures of the proximal right humerus and the medial right clavicle. Followed by Ortho. Leukocytosis, lactic acidosis, UTI Trivial troponin elevation; high sensitivity peak 59. type II, demand ischemia. Continue telemetry. Aspirin. Echo pending. Hypertension; controlled Hyperlipidemia; statin Dementia Hypothyroidism TERESA BETANCOURT APRN Jun 08, 2021 13:00 BOBO JOSUE MD Jun 08, 2021 17:06
--- NOTE | 2021-06-08 13:10 | NUR ---
SW following. Discussed with RN, pt from home with , room air, cardiac diet, COVID-19 negative. PT/OT ordered. Ortho and Cardiology following. Pt has some dementia per RN. SW will continue to follow.
[2021-06-08 15:00] VITALS: BP 141/56
[2021-06-08 16:35] LABS: CHOLESTEROL/HDL RATIO 3.1
[2021-06-08 19:00] VITALS: BP 132/61
[2021-06-08] MEDS ORDERED: BENZOCAINE/MENTHOL LOZENGE. PO PRN (19:15)
[2021-06-08] MEDS: DONEPEZIL HCL 5 MG TABLET. PO SCH (21:16)
[2021-06-08] MEDS: ATORVASTATIN CALCIUM 10 MG TABLET. PO SCH (21:16)
[2021-06-08 22:48] VITALS: BP 138/68
[2021-06-09 03:00] VITALS: BP 165/68
[2021-06-09] MEDS: LEVOTHYROXINE 100 MCG TABLET PO SCH (05:36)
[2021-06-09 07:00] VITALS: BP 165/84
[2021-06-09] MEDS: ASPIRIN ENTERIC COATED 81 MG TABLET.DR. PO SCH (09:00)
[2021-06-09] MEDS: hydroCHLOROthiazide 25 MG TABLET PO SCH (09:01)
[2021-06-09] MEDS: CYANOCOBALAMIN (VITAMIN B-12) 1,000 MCG TABLET. PO SCH (09:01)
[2021-06-09] MEDS: BENZONATATE 100 MG CAPSULE. PO SCH ×3 (09:02→20:45)
[2021-06-09] MEDS: MEMANTINE 10 MG TABLET. PO SCH (09:02)
[2021-06-09] MEDS: ACETAMINOPHEN 500 MG TABLET PO PRN ×2 (09:03→15:16)
[2021-06-09] MEDS: LOSARTAN POTASSIUM 50 MG TABLET. PO SCH (09:04)
[2021-06-09] MEDS: cefTRIAXone IV Push 1 GM VIAL. IVP SCH (09:05)
--- NOTE | 2021-06-09 10:30 | PDOC2 ---
CONSULT Date of Consult Date of Consult DATE: 06/09/21 TIME: 10:29 Reason for Consult Reason for Consult: Right proximal humerus fracture after fall. Identification/Chief Complaint Chief Complaint Right proximal humerus and medial clavicle fracture after fall. Source Source: Chart review, Patient History of Present Illness Reason for Visit: 85-year-old female admitted to the hospital after ground-level fall yesterday. Patient has baseline level of dementia. Right-hand dominant. She has been wearing a shoulder immobilizer but continues to complain of pain involving her right arm especially with movement. Denies any numbness or tingling. At baseline, patient lives with her son with the help of her 2 daughters. She is able to perform activities of daily living somewhat independently but needs help with toileting and showering. She is confused here today in the hospital. She is unsure of the date or location. She admits to right arm pain with any attempted movement. Past Medical History Cardiovascular: HTN, Hyperlipidemia CENTRAL NERVOUS SYSTEM: Dementia Endocrine: Hypothyroidism Past Surgical History Past Surgical History: Appendectomy, Cataract Removal, Total knee replacement (right ), Hysterectomy Family History Family History: Hypertension Social History No ALCOHOL: none Drugs: None Lives: with Family Current Problem List Problem List Problems Medical Problems: (1) Fall Status: Acute (2) Fracture of humeral head, right, closed Status: Acute Current Medications Current Medications Current Medications Sodium Chloride 1,000 ml @ 1,000 mls/hr 1X ONCE IV Last administered on 06/08/21at 03:25; Start 06/08/21 at 03:00; Stop 06/08/21 at 03:59; Status DC Ceftriaxone Sodium (Rocephin) 1 gm 1X ONCE IVP Last administered on 06/08/21at 03:25; Start 06/08/21 at 03:00; Stop 06/08/21 at 03:01; Status DC Aspirin (Ecotrin) 325 mg 1X ONCE PO Last administered on 06/08/21at 03:25; Start 06/08/21 at 03:30; Stop 06/08/21 at 03:31; Status DC Ondansetron HCl (Zofran) 4 mg PRN Q8HRS PRN IVP NAUSEA/VOMITING 1ST CHOICE; Start 06/08/21 at 03:00; Stop 06/09/21 at 02:59; Status DC Acetaminophen (Tylenol) 650 mg PRN Q4HRS PRN PO FEVER > 100.3'F Last administered on 06/08/21 21:16; Start 06/08/21 at 03:00; Stop 06/09/21 at 02:59; Status DC Benzonatate (Tessalon Perle) 100 mg TID PO Last administered on 06/09/21 09:02; Start 06/08/21 at 09:00 Cyanocobalamin (Vitamin B-12) 1,000 mcg DAILY PO Last administered on 06/09/21 09:01; Start 06/08/21 at 09:00 Donepezil HCl (Aricept) 5 mg HS PO Last administered on 06/08/21 21:16; Start 06/08/21 at 21:00 Levothyroxine Sodium (Synthroid) 100 mcg DAILY06 PO Last administered on 06/09/21 05:36; Start 06/08/21 at 10:30 Memantine (Namenda) 10 mg DAILY PO Last administered on 06/09/21 09:02; Start 06/08/21 at 09:00 Losartan Potassium (Cozaar) 100 mg DAILY PO Last administered on 06/09/21 09:04; Start 06/08/21 at 09:00 Atorvastatin Calcium (Lipitor) 10 mg QHS PO Last administered on 06/08/21 21:16; Start 06/08/21 at 21:00 Hydrochlorothiazide (Hydrodiuril) 25 mg DAILY PO Last administered on 06/09/21 09:01; Start 06/08/21 at 09:00 Ceftriaxone Sodium (Rocephin) 1 gm Q24H IVP ; Start 06/08/21 at 09:00; Stop 06/08/21 at 09:49; Status DC Ceftriaxone Sodium (Rocephin) 1 gm Q24H IVP Last administered on 06/09/21 09:05; Start 06/09/21 at 09:00 Aspirin (Ecotrin) 81 mg [id number] PO Last administered on 06/09/21 09:00; Start 06/09/21 at 08:00 Throat Lozenges (Cepacol Sore Throat Lozenge) 1 efren PRN Q2HRS PRN PO SORE THROAT Last administered on 06/08/21 21:16; Start 06/08/21 at 19:15 Acetaminophen (Tylenol) 500 mg PRN Q6HRS PRN PO MILD PAIN / TEMP > 100.3'F Last administered on 06/09/21at 09:03; Start 06/09/21 at 08:00 Active Scripts Active Tessalon Perle (Benzonatate) 100 Mg Capsule 1 Cap PO TID Reported Namenda (Memantine Hcl) 10 Mg Tablet 10 Mg PO DAILY Lovastatin 40 Mg Tablet 40 Mg PO HS Losartan-Hctz 100-25 Mg Tab (Losartan/Hydrochlorothiazide) 1 Each Tablet 1 Each PO DAILY B-12 (Cyanocobalamin (Vitamin B-12)) 1,000 Mcg Tablet 1,000 Mcg PO DAILY Benefiber (Guar Gum) 1 Each Packet 1 Each PO DAILY Donepezil Hcl 5 Mg Tablet 5 Mg PO HS Levothyroxine Sodium 100 Mcg Tablet 100 Mcg PO DAILYAC Allergies Allergies: Coded Allergies: NSAIDS (Non-Steroidal Anti-Inflamma (Unverified Adverse Reaction, Intermediate, renal disease, 12/10/14) morphine (Unverified Adverse Reaction, Intermediate, confusion, 12/10/14) oxycodone (Verified Adverse Reaction, Intermediate, confusion able to take lortab and oxycontin, 12/10/14) tramadol (Unverified Adverse Reaction, Intermediate, confusion, 12/10/14) ROS Musculoskeletal: Yes Joint Pain, Yes Joint Stiffness, Yes Joint Swelling, Yes Muscle Pain, Yes Muscular Weakness Physical Exam General: Alert, mild distress MUSCULOSKELETAL: Abnormal exam of right (Examination of the right upper extremity reveals early ecchymosis which will likely worsen. Mild swelling. Gross motor and distal neurovascular examination is intact. Generalized ten derness. Limited range of motion secondary to pain.) Vitals VITALS Vital Signs Date Time Temp Pulse Resp B/P (MAP) Pulse Ox O2 Delivery O2 Flow Rate FiO2 06/09/21 09:04 94 165/84 06/09/21 07:00 97.8 16 95 97.8 06/09/21 03:00 Room Air 06/08/21 11:00 95.0 Labs Labs Laboratory Tests Test 06/08/21 01:15 06/08/21 01:20 06/08/21 04:00 06/08/21 04:02 Urine Collection Type U cath Urine Color Yellow Urine Clarity Clear Urine pH 5.5 (<5.0-8.0) Urine Specific [place] 1.020 (1.000-1.030) Urine Protein Negative mg/dL (NEG-TRACE) Urine Glucose (UA) Negative mg/dL (NEG) Urine Ketones (Stick) Negative mg/dL (NEG) Urine Blood Negative (NEG) Urine Nitrite Negative (NEG) Urine Bilirubin Negative (NEG) Urine Urobilinogen Dipstick 0.2 mg/dL (0.2 mg/dL) Urine Leukocyte Esterase Small (NEG) Urine RBC Occ /HPF (0-2) Urine WBC 1-4 /HPF (0-4) Urine Squamous Epithelial Cells Few /LPF Urine Bacteria Many /HPF (0-FEW) Urine Hyaline Casts Occasional /HPF Urine Mucus Slight /LPF White Blood Count 23.5 x10^3/uL (4.0-11.0) Red Blood Count 4.03 x10^6/uL (3.50-5.40) Hemoglobin 13.2 g/dL (12.0-15.5) Hematocrit 38.6 % (36.0-47.0) Mean Corpuscular Volume 96 fL (79-100) Mean Corpuscular Hemoglobin 33 pg (25-35) Mean Corpuscular Hemoglobin Concent 34 g/dL (31-37) Red Cell Distribution Width 12.7 % (11.5-14.5) Platelet Count 278 x10^3/uL (140-400) Sodium Level 139 mmol/L (136-145) Potassium Level 3.7 mmol/L (3.5-5.1) Chloride Level 102 mmol/L (98-107) Carbon Dioxide Level 24 mmol/L (21-32) Anion Gap 13 (6-14) Blood Urea Nitrogen 30 mg/dL (7-20) Creatinine 1.6 mg/dL (0.6-1.0) Estimated GFR (Cockcroft-Gault) 30.7 BUN/Creatinine Ratio 19 (6-20) Glucose Level 148 mg/dL (70-99) Lactic Acid Level 2.8 mmol/L (0.4-2.0) 1.3 mmol/L (0.4-2.0) Calcium Level 10.4 mg/dL (8.5-10.1) Magnesium Level 1.8 mg/dL (1.8-2.4) Total Bilirubin 0.6 mg/dL (0.2-1.0) Aspartate Amino Transf (AST/SGOT) 20 U/L (15-37) Alanine Aminotransferase (ALT/SGPT) 22 U/L (14-59) Alkaline Phosphatase 90 U/L (46-116) Creatine Kinase 201 U/L (26-192) Creatine Kinase MB (Mass) 1.4 ng/mL (0.0-3.6) Creatine Kinase MB Relative Index 0.7 % (0-4) Troponin I High Sensitivity 54 ng/L (4-50) 59 ng/L (4-50) Total Protein 7.3 g/dL (6.4-8.2) Albumin 3.8 g/dL (3.4-5.0) Albumin/Globulin Ratio 1.1 (1.0-1.7) SARS-CoV-2 RNA (BRIDGET) Negative (Negative) SARS-CoV-2 Antigen (Rapid) Negative (NEGATIVE) Test 06/08/21 07:00 06/08/21 07:40 Triglycerides Level 100 mg/dL (0-150) Cholesterol Level 161 mg/dL (0-200) LDL Cholesterol, Calculated 89 mg/dL (0-100) VLDL Cholesterol, Calculated 20 mg/dL (0-40) Non-HDL Cholesterol Calculated 109 mg/dL (0-129) HDL Cholesterol 52 mg/dL (40-60) Cholesterol/HDL Ratio 3.1 Thyroid Stimulating Hormone (TSH) 4.811 uIU/mL (0.358-3.74) Troponin I High Sensitivity 54 ng/L (4-50) Images Images Radiographs and CT scan were reviewed. Nondisplaced medial clavicle fracture as well as comminuted proximal humerus fracture with likely head split. Overall alignment is maintained. Assessment/Plan Assessment/Plan 85-year-old female status post ground-level fall with comminuted right proximal humerus fracture and nondisplaced medial clavicle fracture. -Called and spoke with daughter Jeny regarding her mother's injury and treatment options. -Discussed both conservative and surgical options. -We agreed collectively that conservative measure were the most appropriate treatment option. -Continue with shoulder immobilizer and limited use of right upper extremity. -Continue work with PT/OT for transfer training/ADLs. -Patient will likely need acute rehab placement prior to going back home. -Pain control per primary team. -Orthopedically stable. -Recommend outpatient orthopedic follow-up in 2 to 3 weeks for new radiographs. Okay for this to be done at [facility] given the proximity and ease for patient. KHLOE GRAHAM DO Jun 09, 2021 10:30
[2021-06-09 11:00] VITALS: BP 139/61
--- NOTE | 2021-06-09 11:32 | PDOC ---
ASIA,TERESA PEDRO 06/09/21 1132: CARDIO Progress Notes Date and Time Date of Service 06/09/21 Time of Evaluation 1130 Subjective Subjective: No shortness of breath, No Palpitations Vitals Vitals Vital Signs Date Time Temp Pulse Resp B/P (MAP) Pulse Ox O2 Delivery O2 Flow Rate FiO2 06/09/21 09:04 94 165/84 06/09/21 08:09 Room Air 95.0 06/09/21 07:00 97.8 16 95 97.8 Weight Weight [ ] Input and Output Intake and Output Intake and Output 06/09/21 07:00 Intake Total 400 ml Balance 400 ml Intake Oral 400 ml # Voids 6 # Bowel Movements 1 Microbiology Micro Microbiology 06/08/21 Blood Culture - Final, Complete 06/08/21 Urine Culture - Preliminary, Resulted Physical Exam HEENT: Neck Supple W Full Motion Chest: Symmetric LUNGS: Clear to Auscultation Heart: S1S2, RRR (SR with PVC's) Abdomen: Soft N/T Extremities: No Edema Neurology: alert, follow commands, confused Assessment Assessment 1. Traumatic mechanical fall with fractures of the proximal right humerus and the medial right clavicle. Conservative measures 2. Leukocytosis, lactic acidosis, UTI 3. Trivial troponin elevation; high sensitivity peak 59. type II, demand ischemia 4. Hypertension; controlled 5. Hyperlipidemia; statin 6. Dementia 7. Hypothyroidism Recommendations ASA, statin Continue current antiHTN therapy Echo to assess LV systolic function Supportive care Follow ortho recs Justicifation of Admission Dx: Justifications for Admission: Justification of Admission Dx: Yes Comments: . Traumatic mechanical fall with fractures of the proximal right humerus and the medial right clavicle. BOBO JOSUE MD 06/09/21 1752: CARDIO Progress Notes Assessment Assessment Patient seen and examined I agree with our nurse practitioners assessment and plan. Traumatic mechanical fall with fractures of the proximal right humerus and the medial right clavicle. Conservative measure Trivial troponin elevation; high sensitivity peak 59. type II, demand ischemia. Echo. Hypertension; controlled Hyperlipidemia; statin Dementia Hypothyroidism ASIATERESA APRN Jun 09, 2021 11:32 BOBO JOSUE MD Jun 09, 2021 17:52
--- NOTE | 2021-06-09 12:01 | PDOC ---
[employer] PROGRESS NOTE Date of Service DOS: DATE: 06/09/21 TIME: 11:59 Chief Complaint Chief Complaint Acute traumatic comminuted fracture of the proximal humeral head. dementia obesity, BMI 31 weakness SIRS, sepsis, UTI hypothyroid, htn History of Present Illness History of Present Illness conservative measures for arm fracture christina rodriguez, brittanie has seen, would like f/u xray in 2-3 weeks, needs pt and ot likely skilled placement in short term soc Vitals/I&O Vitals/I&O: Vital Signs Date Time Temp Pulse Resp B/P (MAP) Pulse Ox O2 Delivery O2 Flow Rate FiO2 06/09/21 09:04 94 165/84 06/09/21 08:09 Room Air 95.0 06/09/21 07:00 97.8 16 95 97.8 I & O 06/08/21 06/08/21 06/09/21 15:00 23:00 07:00 Intake Total 400 ml 0 ml Balance 400 ml 0 ml Physical Exam General: Alert, mild distress Heart: Regular rate Lungs: Clear Abdomen: Soft, No tenderness Extremities: No edema, Other (right arm immobilizer present ) Skin: No significant lesion Review of Systems Review of Systems: no change Assessment and Plan Assessmemt and Plan Problems Medical Problems: (1) Fall Status: Acute (2) Fracture of humeral head, right, closed Status: Acute Comment Review of Relevant I have reviewed the following items pauline (where applicable) has been applied. Medications: Current Medications Medications (Trade) Dose Ordered Sig/Shady Route PRN Reason Start Time Stop Time Status Last Admin Dose Admin Donepezil HCl (Aricept) 5 mg HS PO 06/08/21 21:00 06/08/21 21:16 Atorvastatin Calcium (Lipitor) 10 mg QHS PO 06/08/21 21:00 06/08/21 21:16 Ceftriaxone Sodium (Rocephin) 1 gm Q24H IVP 06/09/21 09:00 06/09/21 09:05 Aspirin (Ecotrin) 81 mg DAILYWBKFT PO 06/09/21 08:00 06/09/21 09:00 Throat Lozenges (Cepacol Sore Throat Lozenge) 1 efren PRN Q2HRS PRN PO SORE THROAT 06/08/21 19:15 06/08/21 21:16 Acetaminophen (Tylenol) 500 mg PRN Q6HRS PRN PO MILD PAIN / TEMP > 100.3'F 06/09/21 08:00 06/09/21 09:03 Justifications for Admission Other Justification DANDRE SAWYER MD Jun 09, 2021 12:01
[2021-06-09 15:00] VITALS: BP 117/74
[2021-06-09 19:00] VITALS: BP 162/70
[2021-06-09] MEDS: LACTOBACILLUS RHAMNOSUS GG 1 CAPSULE. PO SCH (20:44)
[2021-06-09] MEDS: DONEPEZIL HCL 5 MG TABLET. PO SCH (20:45)
[2021-06-09] MEDS: ATORVASTATIN CALCIUM 10 MG TABLET. PO SCH (20:45)
[2021-06-10] MEDS: ACETAMINOPHEN 500 MG TABLET PO PRN ×2 (02:34→08:57)
[2021-06-10 03:00] VITALS: BP 178/87
[2021-06-10] MEDS: LEVOTHYROXINE 100 MCG TABLET PO SCH (06:21)
[2021-06-10 07:00] VITALS: BP 164/88
--- NOTE | 2021-06-10 08:47 | PDOC ---
CARDIO Progress Notes Date and Time Date of Service 06/10/21 Time of Evaluation 1215 Subjective Subjective: No Chest Pain, No shortness of breath, No Palpitations, No Dizziness Vitals Vitals Vital Signs Date Time Temp Pulse Resp B/P (MAP) Pulse Ox O2 Delivery O2 Flow Rate FiO2 06/10/21 07:00 98.5 88 18 164/88 (113) 98 Room Air 98.5 06/09/21 19:00 95.0 Weight Weight [ ] Input and Output Intake and Output Intake and Output 06/10/21 07:00 Intake Total 0 ml Balance 0 ml Intake Oral 0 ml # Voids 6 # Bowel Movements 1 Microbiology Micro Microbiology 06/08/21 Blood Culture - Final, Complete 06/08/21 Urine Culture - Final, Complete 06/08/21 Antimicrobic Susceptibility - Final, Complete Physical Exam HEENT: Neck Supple W Full Motion Chest: Symmetric LUNGS: Clear to Auscultation Heart: S1S2, RRR (SR with PVC's) Abdomen: Soft N/T Extremities: No Edema Neurology: alert, follow commands, confused Assessment Assessment 1. Traumatic mechanical fall with fractures of the proximal right humerus and the medial right clavicle. Conservative measures 2. Leukocytosis, lactic acidosis, UTI. cult with GNR 3. Trivial troponin elevation; high sensitivity peak 59. type II, demand ischemia 4. Hypertension; controlled 5. Hyperlipidemia; statin 6. Dementia 7. Hypothyroidism Recommendations ASA, statin Continue current antiHTN therapy Echo pending Supportive care Follow ortho recs Justicifation of Admission Dx: Justifications for Admission: Justification of Admission Dx: Yes TERESA BETANCOURT APRN Jun 10, 2021 08:47
--- NOTE | 2021-06-10 08:56 | PDOC ---
[employer] [facility] PROGRESS NOTE Date of Service DOS: DATE: 06/10/21 TIME: 08:56 Chief Complaint Chief Complaint Acute traumatic comminuted fracture of the proximal humeral head. dementia obesity, BMI 31 weakness SIRS, sepsis, UTI hypothyroid, htn History of Present Illness History of Present Illness will need skilled placement, pending conservative measures for arm fracturev care coordin following Vitals/I&O Vitals/I&O: Vital Signs Date Time Temp Pulse Resp B/P (MAP) Pulse Ox O2 Delivery O2 Flow Rate FiO2 06/10/21 07:00 98.5 88 18 164/88 (113) 98 Room Air 98.5 06/09/21 19:00 95.0 I & O 06/09/21 06/09/21 06/10/21 15:00 23:00 07:00 Intake Total 0 ml Balance 0 ml Physical Exam General: Alert, mild distress Heart: Regular rate Lungs: Clear Abdomen: Soft, No tenderness Extremities: No edema, Other (right arm immobilizer present ) Skin: No significant lesion Assessment and Plan Assessmemt and Plan Problems Medical Problems: (1) Fall Status: Acute (2) Fracture of humeral head, right, closed Status: Acute Comment Review of Relevant I have reviewed the following items pauline (where applicable) has been applied. Medications: Current Medications Medications (Trade) Dose Ordered Sig/Shady Route PRN Reason Start Time Stop Time Status Last Admin Dose Admin Ceftriaxone Sodium (Rocephin) 1 gm Q24H IVP 06/09/21 09:00 06/09/21 09:05 Lactobacillus Rhamnosus (Culturelle) 1 cap BID PO 06/09/21 21:00 06/09/21 20:44 Justifications for Admission Other Justification DANDRE SAWYER MD Jun 10, 2021 08:56
[2021-06-10] MEDS: BENZONATATE 100 MG CAPSULE. PO SCH ×3 (08:59→20:42)
[2021-06-10] MEDS: MEMANTINE 10 MG TABLET. PO SCH (08:59)
[2021-06-10] MEDS: CYANOCOBALAMIN (VITAMIN B-12) 1,000 MCG TABLET. PO SCH (08:59)
[2021-06-10] MEDS: hydroCHLOROthiazide 25 MG TABLET PO SCH (08:59)
[2021-06-10] MEDS: LOSARTAN POTASSIUM 50 MG TABLET. PO SCH (09:00)
[2021-06-10] MEDS: LACTOBACILLUS RHAMNOSUS GG 1 CAPSULE. PO SCH ×2 (09:00→20:42)
[2021-06-10] MEDS: cefTRIAXone IV Push 1 GM VIAL. IVP SCH (09:00)
[2021-06-10] MEDS: ASPIRIN ENTERIC COATED 81 MG TABLET.DR. PO SCH (09:03)
[2021-06-10 11:00] VITALS: BP 159/80
[2021-06-10 15:00] VITALS: BP 132/60
--- NOTE | 2021-06-10 16:25 | NUR ---
SW following. Discussed with RN, therapy recommending SNF. LASHA spoke with pt's daughter, Kristy - she is agreeable and would like SW to try [facility] and she will discuss with her sister this evening some other options. LASHA phoned and faxed referral to [facility], awaiting acceptance decision. LASHA will continue to follow.
--- NOTE | 2021-06-10 16:44 | CARD ---
MR#: [id number] Date of Study: 06/10/2021 Ordering Physician: TERESA BETANCOURT, Referring Physician: TERESA BETANCOURT, Tech: Sofia Rosales [facility] APPROVED REPORT EXAM: Two-dimensional and M-mode echocardiogram with Doppler and color Doppler. Other Information Quality : Technically LimitedHR: 83bpm Rhythm : NSR INDICATION Murmur RISK FACTORS Hypertension Hyperlipidemia 2D DIMENSIONS Left Atrium(2D)4.1 (1.6-4.0cm)IVSd1.2 (0.7-1.1cm) Aortic Root(2D)3.3 (2.0-3.7cm)LVDd3.6 (3.9-5.9cm) LVOT Diameter2.1 (1.8-2.4cm)PWd1.2 (0.7-1.1cm) LVDs2.1 (2.5-4.0cm)FS (%) 41.4 % SV40.1 ml Aortic Valve AoV Peak Jero.300.3cm/sAoV VTI54.9cm AO Peak GR.36.1mmHgLVOT VTI 19.11cm AO Mean GR.18mmHgAI P 1/2 [id number] Mitral Valve MV E Ocohevfb20.4cm/sMV DECEL [id number] MV A Bxeclfja437.3cm/sE/A Ratio0.6 Tricuspid Valve TR P. Zzikycai364ci/sTR Peak Gr.32mmHg LEFT VENTRICLE The left ventricle is normal size. There is mild concentric left ventricular hypertrophy. The left ve ntricular systolic function is normal and the ejection fraction is within normal range. LV ejection fraction of 55 to 60%. There is normal LV segmental wall motion. Transmitral Doppler flow pattern is Grade I-abnormal relaxation pattern. RIGHT VENTRICLE The right ventricle is normal size. There is normal right ventricular wall thickness. The right ventr icular systolic function is normal. ATRIA The left atrium size is normal. The right atrium size is normal. The interatrial septum is intact wit h no evidence for an atrial septal defect or patent foramen ovale as noted on 2-D or Doppler imaging. AORTIC VALVE The aortic valve is calcified and displays decreased opening. Doppler and Color Flow revealed mild ao rtic regurgitation. There is mild to moderate valvular aortic stenosis. Aortic valve area of 1.2 cm , peak pressure gradient of 36 mmHg, mean pressure gradient 18 mmHg. MITRAL VALVE The mitral valve is normal in structure and function. There is no evidence of mitral valve prolapse. There is no mitral valve stenosis. Doppler and Color-flow revealed trace to mild mitral regurgitation . TRICUSPID VALVE The tricuspid valve is normal in structure and function. Doppler and Color Flow revealed mild tricusp id regurgitation. Estimated PAP 30 mmHg. There is no tricuspid valve stenosis. PULMONIC VALVE The pulmonary valve is normal in structure and function. Doppler and Color Flow revealed no pulmonic valvular regurgitation. GREAT VESSELS The aortic root is normal in size. The ascending aorta is normal in size. The IVC is normal in size a nd collapses >50% with inspiration. PERICARDIAL EFFUSION There is no evidence of significant pericardial effusion. Critical Notification Critical Value: No <Conclusion> The left ventricle is normal size. The left ventricular systolic function is normal and the ejection fraction is within normal range. LV ejection fraction of 55 to 60%. There is normal LV segmental wall motion. There is mild concentric left ventricular hypertrophy. Doppler and Color Flow revealed mild aortic regurgitation. There is mild to moderate valvular aortic stenosis. Aortic valve area of 1.2 cm, peak pressure gradient of 36 mmHg, mean pressure gradient 18 mmHg. Doppler and Color-flow revealed trace to mild mitral regurgitation. Doppler and Color Flow revealed mild tricuspid regurgitation. Estimated PAP 30 mmHg. Signed by : Prasanna Frey MD Electronically Approved : 06/10/2021 16:44:13
[2021-06-10 19:00] VITALS: BP 156/66
[2021-06-10] MEDS: DONEPEZIL HCL 5 MG TABLET. PO SCH (20:42)
[2021-06-10] MEDS: ATORVASTATIN CALCIUM 10 MG TABLET. PO SCH (20:42)
[2021-06-10 23:00] VITALS: BP 140/82
[2021-06-11 03:00] VITALS: BP 152/72
[2021-06-11] MEDS: LEVOTHYROXINE 100 MCG TABLET PO SCH (06:01)
[2021-06-11 07:00] VITALS: BP 148/79
[2021-06-11] MEDS: BENZONATATE 100 MG CAPSULE. PO SCH ×3 (08:57→20:32)
[2021-06-11] MEDS: MEMANTINE 10 MG TABLET. PO SCH (08:57)
[2021-06-11] MEDS: hydroCHLOROthiazide 25 MG TABLET PO SCH (08:57)
[2021-06-11] MEDS: CYANOCOBALAMIN (VITAMIN B-12) 1,000 MCG TABLET. PO SCH (08:58)
[2021-06-11] MEDS: LACTOBACILLUS RHAMNOSUS GG 1 CAPSULE. PO SCH ×2 (08:58→20:32)
[2021-06-11] MEDS: LOSARTAN POTASSIUM 50 MG TABLET. PO SCH (08:58)
[2021-06-11] MEDS: ASPIRIN ENTERIC COATED 81 MG TABLET.DR. PO SCH (08:58)
[2021-06-11] MEDS: cefTRIAXone IV Push 1 GM VIAL. IVP SCH (08:58)
--- NOTE | 2021-06-11 10:11 | PDOC ---
CARDIO Progress Notes Date and Time Date of Service 06/11/21 Time of Evaluation 1000 Subjective Subjective: No Chest Pain, No shortness of breath, No Palpitations, No Dizziness Vitals Vitals Vital Signs Date Time Temp Pulse Resp B/P (MAP) Pulse Ox O2 Delivery O2 Flow Rate FiO2 06/11/21 08:58 95 188/79 06/11/21 07:00 98.3 16 95 Room Air 98.3 Weight Weight [ ] Input and Output Intake and Output Intake and Output 06/11/21 07:00 Intake Total 560 ml Output Total 300 ml Balance 260 ml Intake Oral 560 ml Output Urine Total 300 ml # Voids 3 Microbiology Micro Microbiology 06/08/21 Blood Culture - Final, Complete 06/08/21 Urine Culture - Final, Complete 06/08/21 Antimicrobic Susceptibility - Final, Complete Physical Exam HEENT: Neck Supple W Full Motion Chest: Symmetric LUNGS: Clear to Auscultation Heart: S1S2, RRR (SR with PVC's) Abdomen: Soft N/T Extremities: No Edema Neurology: alert, follow commands, confused Assessment Assessment 1. Traumatic mechanical fall with fractures of the proximal right humerus and the medial right clavicle. Conservative measures 2. Leukocytosis, lactic acidosis, UTI. cult with GNR 3. Trivial troponin elevation; high sensitivity peak 59. type II, demand ischemia. Echo with preserved LV systolic function. Mild to moderate valvular aortic stenosis noted. 4. Hypertension; labile 5. Hyperlipidemia; statin 6. Dementia 7. Hypothyroidism; TSH 4.8. as per IM Recommendations ASA, statin Add amlodipine for BP control Antibiotic therapy for treatment of UTI Follow ortho recs Outpatient monitoring of Supportive care Justicifation of Admission Dx: Justifications for Admission: Justification of Admission Dx: Yes TERESA BETANCOURT APRN Jun 11, 2021 10:11
--- NOTE | 2021-06-11 10:30 | NUR ---
SW following. Discussed with RN, pt accepted at [facility], pending insurance auth. RN notified. SW will continue to follow.
--- NOTE | 2021-06-11 10:33 | PDOC ---
[employer] PROGRESS NOTE Date of Service DOS: DATE: 06/11/21 TIME: 10:31 Chief Complaint Chief Complaint Acute traumatic comminuted fracture of the proximal humeral head. dementia obesity, BMI 31 weakness SIRS, sepsis, UTI hypothyroid, htn History of Present Illness History of Present Illness 06/11/2021 Patient seen and examined She is pleasantly confused Right arm is in a sling Discussed with case management Discussed with RN Chart reviewed Vitals/I&O Vitals/I&O: Vital Signs Date Time Temp Pulse Resp B/P (MAP) Pulse Ox O2 Delivery O2 Flow Rate FiO2 06/11/21 08:58 95 188/79 06/11/21 07:00 98.3 16 95 Room Air 98.3 I & O 06/10/21 06/10/21 06/11/21 15:00 23:00 07:00 Intake Total 240 ml 120 ml 200 ml Output Total 300 ml Balance 240 ml 120 ml -100 ml Physical Exam General: Alert, Other (Pleasantly confused) Heart: Regular rate Lungs: Clear Abdomen: Soft, No tenderness Extremities: No edema, Other (right arm immobilizer present ) Skin: No significant lesion Assessment and Plan Assessmemt and Plan Problems Medical Problems: (1) Fall Status: Acute (2) Fracture of humeral head, right, closed Status: Acute Acute traumatic comminuted fracture of the proximal humeral head. Dementia Obesity, BMI 31 Weakness Slightly elevated troponin suspect demand ischemia SIRS Sepsis UTI Hypothyroidism Hypertension Plan Appreciate Ortho and cardiology input PT OT As needed pain meds Home meds DVT prophylaxis Full code We will likely need [facility] soon Comment Review of Relevant I have reviewed the following items pauline (where applicable) has been applied. Justifications for Admission Other Justification MANDY ORDAZ III DO Jun 11, 2021 10:33
[2021-06-11 11:00] VITALS: BP 148/79
[2021-06-11 13:34] LABS: BASO # 0.1 x10^3/uL (0.0-0.2); BASO % 1 % (0-3); EOS # 0.3 x10^3/uL (0.0-0.7); EOS % 3 % (0-3); HEMOGLOBIN 11.7 g/dL (12.0-15.5); LYMPH # 2.5 x10^3/uL (1.0-4.8); LYMPH % 19 % (24-48); MEAN CORPUSCULAR HEMOGLOBIN 32 pg (25-35); MEAN CORPUSCULAR HGB CONC 34 g/dL (31-37); MEAN CORPUSCULAR VOLUME 94 fL (79-100); MONO % 8 % (0-9); NEUT # 9.3 x10^3/uL (1.8-7.7); NEUT % 70 % (31-73); PLATELET COUNT 289 x10^3/uL (140-400); RED BLOOD COUNT 3.61 x10^6/uL (3.50-5.40); RED CELL DISTRIBUTION WIDTH 12.7 % (11.5-14.5); WHITE BLOOD COUNT 13.3 x10^3/uL (4.0-11.0)
[2021-06-11 13:36] LABS: CALCIUM 9.2 mg/dL (8.5-10.1); GFR 52.8; POTASSIUM 3.4 mmol/L (3.5-5.1)
[2021-06-11 15:00] VITALS: BP 148/74
[2021-06-11 19:00] VITALS: BP 134/62
[2021-06-11] MEDS: DONEPEZIL HCL 5 MG TABLET. PO SCH (20:32)
[2021-06-11] MEDS: ATORVASTATIN CALCIUM 10 MG TABLET. PO SCH (20:32)
--- NOTE | 2021-06-11 22:45 | NUR ---
Nurse aide placed pt on bedside commode per pt request. Pt. fell while getting herself off commode without calling. Pt. assisted back to bed. VSS. Denies any pain or injuries. Nursing supervisor cellars notified. Dr. Hanson to be notified. Bed alarm set. Will continue to monitor.
[2021-06-11 23:06] VITALS: BP 121/66
[2021-06-12 03:11] VITALS: BP 139/57
[2021-06-12] MEDS: LEVOTHYROXINE 100 MCG TABLET PO SCH (05:55)
[2021-06-12 07:00] VITALS: BP 165/66
[2021-06-12] MEDS: MEMANTINE 10 MG TABLET. PO SCH (09:13)
[2021-06-12] MEDS: BENZONATATE 100 MG CAPSULE. PO SCH ×2 (09:13→14:51)
[2021-06-12] MEDS: LACTOBACILLUS RHAMNOSUS GG 1 CAPSULE. PO SCH (09:13)
[2021-06-12] MEDS: CYANOCOBALAMIN (VITAMIN B-12) 1,000 MCG TABLET. PO SCH (09:13)
[2021-06-12] MEDS: cefTRIAXone IV Push 1 GM VIAL. IVP SCH (09:14)
[2021-06-12] MEDS: ASPIRIN ENTERIC COATED 81 MG TABLET.DR. PO SCH (09:14)
[2021-06-12] MEDS: LOSARTAN POTASSIUM 50 MG TABLET. PO SCH (09:14)
[2021-06-12] MEDS: hydroCHLOROthiazide 25 MG TABLET PO SCH (09:14)
[2021-06-12 11:00] VITALS: BP 107/67
[2021-06-12] MEDS ORDERED: AMLO-186 PO (12:25)
--- NOTE | 2021-06-12 12:26 | SNU/HH DC ---
DISCHARGE ORDERS DISCHARGE INFORMATION: DISCHARGE DATE: Jun 12, 2021 FINAL DIAGNOSIS Problems Medical Problems: (1) Fall Status: Acute (2) Fracture of humeral head, right, closed Status: Acute CONDITION ON DISCHARGE: Stable CODE STATUS: Code Status: Full LONG-TERM: SNF STAY <30 DAYS: Yes POST DISCHARGE ORDERS: ACTIVITY ORDERS: Activity as tolerated WEIGHT BEARING STATUS: Full weight bearing, As tolerated BATHING ORDERS: Shower-keep dressing dry, No Tub Bath until see WOUND/INCISION CARE: Ice to area for comfort, Keep wound/cast CDI, Keep wound elevated, Do not change dressing TREATMENT/EQUIPMENT ORDERS: ADAPTIVE EQUIPMENT NEEDED: None DISCHARGE MEDICATIONS: Home Meds Active Scripts Benzonatate (TESSALON PERLE) 100 Mg Capsule, 1 CAP PO TID, #21 CAP Prov:ISAAC BOOTHE MD 03/31/18 Reported Medications Memantine Hcl (NAMENDA) 10 Mg Tablet, 10 MG PO DAILY, TAB 03/31/18 Lovastatin (LOVASTATIN) 40 Mg Tablet, 40 MG PO HS, TAB 03/31/18 Losartan/Hydrochlorothiazide (LOSARTAN-HCTZ 100-25 MG TAB) 1 Each Tablet, 1 EACH PO DAILY, TAB 03/31/18 Cyanocobalamin (Vitamin B-12) (B-12) 1,000 Mcg Tablet, 1000 MCG PO DAILY 11/13/14 Guar Gum (BENEFIBER) 1 Each Packet, 1 EACH PO DAILY, PACKET 11/13/14 Donepezil Hcl (DONEPEZIL HCL) 5 Mg Tablet, 5 MG PO HS, TAB 11/13/14 Levothyroxine Sodium (LEVOTHYROXINE SODIUM) 100 Mcg Tablet, 100 MCG PO DAILYAC for THYROID SUPPLEMENT, TAB 0 Refills 11/13/14 DARREN PABLO MD Jun 12, 2021 12:26
--- NOTE | 2021-06-12 12:37 | NUR ---
SW following. Discussed with RN, discharge orders faxed to [facility], transportation arranged for [id number]. RN and pt's daughter notified.
--- NOTE | 2021-06-12 16:16 | NUR ---
Discharge Note: Patient was discharged to [facility]. Patient and family agreeable with discharge plans. Patients IV was discontinued without any complications per [facility] RACER. Patient was taken over to facility via wheelchair van. Patients daughter took all of patients personal belongings. Report was called to CYNDI Menon. All discharge paperwork was sent to facility with patient.
--- NOTE | 2021-06-12 20:25 | PDOC3 ---
Discharge Summary Visit Information Date of Admission: Jun 08, 2021 Date of Discharge: Jun 12, 2021 Admitting Diagnosis Comment: Acute traumatic comminuted fracture of the proximal humeral head. dementia obesity, BMI 31 weakness SIRS, sepsis, UTI hypothyroid, htn Final Diagnosis Problems Medical Problems: (1) Fall Status: Acute (2) Fracture of humeral head, right, closed Status: Acute Acute traumatic comminuted fracture of the proximal humeral head. dementia obesity, BMI 31 weakness SIRS, sepsis, UTI hypothyroid, htn Brief Hospital Course Allergies Allergies Coded Allergies Type Severity Reaction Last Updated Verified NSAIDS (Non-Steroidal Anti-Inflamma Adverse Reaction Intermediate renal disease 12/10/14 No morphine Adverse Reaction Intermediate confusion 12/10/14 No oxycodone Adverse Reaction Intermediate confusion able to take lortab and oxycontin 12/10/14 Yes tramadol Adverse Reaction Intermediate confusion 12/10/14 No Vital Signs Vital Signs Date Time Temp Pulse Resp B/P (MAP) Pulse Ox O2 Delivery O2 Flow Rate FiO2 06/12/21 11:00 98.0 97 18 107/67 (80) 94 Room Air 98.0 Lab Results Laboratory Tests Test 06/11/21 12:50 06/11/21 17:45 White Blood Count 13.3 x10^3/uL (4.0-11.0) Red Blood Count 3.61 x10^6/uL (3.50-5.40) Hemoglobin 11.7 g/dL (12.0-15.5) Hematocrit 34.0 % (36.0-47.0) Mean Corpuscular Volume 94 fL (79-100) Mean Corpuscular Hemoglobin 32 pg (25-35) Mean Corpuscular Hemoglobin Concent 34 g/dL (31-37) Red Cell Distribution Width 12.7 % (11.5-14.5) Platelet Count 289 x10^3/uL (140-400) Neutrophils (%) (Auto) 70 % (31-73) Lymphocytes (%) (Auto) 19 % (24-48) Monocytes (%) (Auto) 8 % (0-9) Eosinophils (%) (Auto) 3 % (0-3) Basophils (%) (Auto) 1 % (0-3) Neutrophils # (Auto) 9.3 x10^3/uL (1.8-7.7) Lymphocytes # (Auto) 2.5 x10^3/uL (1.0-4.8) Monocytes # (Auto) 1.0 x10^3/uL (0.0-1.1) Eosinophils # (Auto) 0.3 x10^3/uL (0.0-0.7) Basophils # (Auto) 0.1 x10^3/uL (0.0-0.2) Sodium Level 134 mmol/L (136-145) Potassium Level 3.4 mmol/L (3.5-5.1) Chloride Level 98 mmol/L (98-107) Carbon Dioxide Level 28 mmol/L (21-32) Anion Gap 8 (6-14) Blood Urea Nitrogen 25 mg/dL (7-20) Creatinine 1.0 mg/dL (0.6-1.0) Estimated GFR (Cockcroft-Gault) 52.8 Glucose Level 140 mg/dL (70-99) Calcium Level 9.2 mg/dL (8.5-10.1) SARS-CoV-2 RNA (BRIDGET) Negative (Negative) Brief Hospital Course MS. Spicer is pleasant and talkative this AM, demetnia noted from prior note . Daughter was in room last night in ER and was providing most of history. Patient is an 85-year-old female with past medical history of dementia, hypertension, hyperlipidemia, CKD presenting for mechanical fall yesterrady, fell hard on her right shoudler, is now in a sling with support to lateral movemen. Patient is complaining of right shoulder pain that is dull in nature and worse with movement. she is aware she inthe the hospital, knows this is [facility], but unsure on year, date, and city., She denies chest pain She was seen in consultation by orthopedic [facility] as[facility] consultant on 04/02/2021 and the following recommendations were given: Assessment/Plan 85-year-old female status post ground-level fall with comminuted right proximal humerus fracture and nondisplaced medial clavicle fracture. -Called and spoke with daughter Jeny regarding her mother's injury and treatment options. -Discussed both conservative and surgical options. -We agreed collectively that conservative measure were the most appropriate treatment option. -Continue with shoulder immobilizer and limited use of right upper extremity. -Continue work with PT/OT for transfer training/ADLs. -Patient will likely need acute rehab placement prior to going back home. -Pain control per primary team. -Orthopedically stable. -Recommend outpatient orthopedic follow-up in 2 to 3 weeks for new radiographs. Okay for [facility] to be done at [facility] given the proximity and ease for patient. 06/11/2021 Patient seen and examined She is pleasantly confused Right arm is in a sling Discussed with case management Discussed with RN Chart reviewed 06/12/2021 No acute events reported overnight, case discussed with nursing staff patient in no acute distress no complaints during my visit All concerns addressed prior to discharge She will be transferring to a care home facility to continue with her rehabilitation /Physical Exam General: Alert, Other (Pleasantly confused) Heart: Regular rate Lungs: Clear Abdomen: Soft, No tenderness Extremities: No edema, Other (right arm immobilizer present ) Skin: No significant lesion Discharge Information Condition at Discharge: Improved Follow Up: Weeks Disposition/Orders: D/C to Another Facility Scheduled Amlodipine Besylate (Amlodipine Besylate) 5 Mg Tablet, 5 MG PO DAILY for essential hypertension for 30 Days, #30 Prescribed by: DARREN PABLO MD on 06/12/21 1225 Benzonatate (Tessalon Perle) 100 Mg Capsule, 1 CAP PO TID, #21 Prescribed by: ISAAC BOOTHE MD on 03/31/18 0836 Last Action: Continued on 06/08/21818 by DANDRE SAWYER Cyanocobalamin (Vitamin B-12) (B-12) 1,000 Mcg Tablet, 1,000 MCG PO DAILY, (Reported) Entered as Reported by: KAREN MYERS on 11/13/14 1634 Last Action: Continued on 06/08/21818 by DANDRE SAWYER Donepezil Hcl (Donepezil Hcl) 5 Mg Tablet, 5 MG PO HS, (Reported) Entered as Reported by: KAREN MYERS on 11/13/14 1633 Last Action: Continued on 06/08/21818 by DANDRE SAWYER Guar Gum (Benefiber) 1 Each Packet, 1 EACH PO DAILY, (Reported) Entered as Reported by: KAREN MYERS on 11/13/14 1633 Levothyroxine Sodium (Levothyroxine Sodium) 100 Mcg Tablet, 100 MCG PO DAILYAC for THYROID SUPPLEMENT, Ref 0 (Reported) Entered as Reported by: KAREN MYERS on 11/13/14 1625 Last Action: Continued on 06/08/21818 by DANDRE SAWYER Losartan/Hydrochlorothiazide (Losartan-Hctz 100-25 Mg Tab) 1 Each Tablet, 1 EACH PO DAILY, (Reported) Entered as Reported by: PABLO HENSLEY on 03/31/18640 Last Action: Converted on 06/08/21818 by DANDRE SWAYER Lovastatin (Lovastatin) 40 Mg Tablet, 40 MG PO HS, (Reported) Entered as Reported by: PABLO HENSLEY on 03/31/18640 Last Action: Converted on 06/08/21818 by DANDRE SAWYER Memantine Hcl (Namenda) 10 Mg Tablet, 10 MG PO DAILY, (Reported) Entered as Reported by: PABLO HENSLEY on 03/31/18640 Last Action: Continued on 06/08/21818 by DANDRE SAWYER Justicifation of Admission Dx: Justifications for Admission: Justification of Admission Dx: Yes DARREN PABLO MD Jun 12, 2021 20:25
== END 2021-06-12 15:00 | DRG 872 ==
LOC: ER 22:12 → 5 SOUTH 06-08 02:25
PROVIDERS: ADMIT Internal Medicine; ATTEND Internal Medicine
DX: A41.9 Sepsis, unspecified organism (principal); S42.291A Other displaced fracture of upper end of right humerus, initial encounter for closed fracture; N39.0 Urinary tract infection, site not specified; E03.9 Hypothyroidism, unspecified; E66.9 Obesity, unspecified; E78.00 Pure hypercholesterolemia, unspecified; E78.5 Hyperlipidemia, unspecified; F03.90 Unspecified dementia, unspecified severity, without behavioral disturbance, psychotic disturbance, mood disturbance, and anxiety; I12.9 Hypertensive chronic kidney disease with stage 1 through stage 4 chronic kidney disease, or unspecified chronic kidney disease; I35.0 Nonrheumatic aortic (valve) stenosis; M81.0 Age-related osteoporosis without current pathological fracture; N18.9 Chronic kidney disease, unspecified; W22.8XXA Striking against or struck by other objects, initial encounter; Z68.31 Body mass index [BMI] 31.0-31.9, adult; Z82.49 Family history of ischemic heart disease and other diseases of the circulatory system; Z90.49 Acquired absence of other specified parts of digestive tract; Z90.710 Acquired absence of both cervix and uterus; Z96.651 Presence of right artificial knee joint; Z68.30 Body mass index [BMI] 30.0-30.9, adult; Y93.89 Activity, other specified; Y92.89 Other specified places as the place of occurrence of the external cause; Y99.8 Other external cause status; Z20.822 Contact with and (suspected) exposure to COVID-19
CPT/HCPCS: 29505; 36415; 70450; 71045; 71250; 72125; 73030; 80048; 80053; 80061; 81001; 82553; 83605; 83735; 84443; 84484; 85025; 85027; 87040; 87077; 87086; 87186; 87205; 87426; 93005; 93306; 96361; 96374; J0696; J7030; U0003; U0005; 97116-GP; 97530-GO; 97530-GP; 97535-GO; 99285-25; G0378

== ENCOUNTER 2021-12-15 11:41 | Inpatient (IN) | payer MEDICARE ==
[~2021-12-15] VITALS: Ht 147.3 cm; Wt 85.1 kg
[~2021-12-15 11:41] MED LIST changes: +AMLO-186 PO; +FOSF3PAC4 PO; +FOSF3PAC6 PO
[2021-12-15] MEDS ORDERED: KETOROLAC 15 MG/ML VIAL. IVP ONE (12:15)
[2021-12-15 12:51] LABS: BASO # 0.1 x10^3/uL (0.0-0.2); BASO % 1 % (0-3); EOS # 0.2 x10^3/uL (0.0-0.7); EOS % 1 % (0-3); HEMATOCRIT 35.8 % (36.0-47.0); LYMPH # 1.8 x10^3/uL (1.0-4.8); LYMPH % 13 % (24-48); MEAN CORPUSCULAR HEMOGLOBIN 32 pg (25-35); MEAN CORPUSCULAR HGB CONC 34 g/dL (31-37); MEAN CORPUSCULAR VOLUME 96 fL (79-100); MONO % 7 % (0-9); NEUT % 78 % (31-73); PLATELET COUNT 362 x10^3/uL (140-400); RED BLOOD COUNT 3.73 x10^6/uL (3.50-5.40); WHITE BLOOD COUNT 14.1 x10^3/uL (4.0-11.0)
--- NOTE | 2021-12-15 13:12 | RAD ---
PA and lateral chest. HISTORY: Cough PA and lateral views were taken of the chest. There is elevation the right diaphragm. Heart is upper normal or mildly enlarged. There is no pleural effusion. There is atherosclerotic change in the aorta . There are no acute infiltrates. IMPRESSION: 1. Elevated right diaphragm. 2. No acute infiltrates. Electronically signed by: Jason Mcclian MD (12/15/2021 1:10 PM) [id number]
--- NOTE | 2021-12-15 13:14 | RAD ---
XR LUMBAR SPINE 2-3V History: Pain. Comparison: MRI lumbar spine 05/22/2014 Technique: 3 views of the lumbar spine. Findings: There are 5 non-rib bearing lumbar vertebral segments. There is no evidence of fracture. No destructive osseous lesions. Levoconvex curvature of the lumbar spine. Straightening of the normal lumbar lordosis. Multilevel advanced facet hypertrophic degenerative changes. Advanced multilevel degenerative disc disease with endplate osteophytes and severe disc height narrow ing. Sacroiliac joints are unremarkable. Atherosclerotic calcifications of the aorta. IMPRESSION: 1. 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 Electronically signed by: Jessee Rendon MD (12/15/2021 1:12 PM) [id number]
[2021-12-15 13:15] LABS: CALCIUM 9.8 mg/dL (8.5-10.1); CREATININE 1.1 mg/dL (0.6-1.0); GFR 47.2; POTASSIUM 3.9 mmol/L (3.5-5.1)
[2021-12-15 13:22] LABS: ALBUMIN 3.4 g/dL (3.4-5.0); ALBUMIN/GLOBULIN RATIO 0.9 (1.0-1.7); TOTAL BILIRUBIN 0.4 mg/dL (0.2-1.0); TOTAL PROTEIN 7.2 g/dL (6.4-8.2)
[2021-12-15 14:55] LABS: WBC,URINE 0 /HPF (0-4)
[2021-12-15 14:56] LABS: AMORPHOUS SEDIMENT,UR PRESENT /HPF; BACTERIA,URINE 0 /HPF (0-FEW); HYALINE CASTS, URINE OCCASIONAL /HPF
--- NOTE | 2021-12-15 15:05 | PHYS DOC ---
Past Medical History Past Medical History: High Cholesterol, Hypertension Additional Past Medical Histor: DEMENTIA Past Surgical History: Appendectomy, Hysterectomy Smoking Status: Never Smoker Alcohol Use: None Drug Use: None General Adult EDM: Chief Complaint: WEAKNESS/GENERALIZED HPI: HPI: Patient is a 86 year old female presents with low back pain from the skilled nursing across the street. Patient is demented and most of the history is gathered from her daughter, the nurse at the skilled nursing, and the nurse practitioner who recently saw the patient at the skilled nursing. Patient is on the assisted living side. Patient is now unable to ambulate due to back pain. They have been attempting Tylenol for pain management, however no other medications were trialed. Patient presents with severe back pain at this time, x-rays taken last week showed degenerative changes of the spine, no acute fracture. No other symptoms noted. Review of Systems: Review of Systems: Constitutional: Denies fever or chills. [] Eyes: Denies change in visual acuity. [] HENT: Denies nasal congestion or sore throat. [] Respiratory: Denies cough or shortness of breath. [] Cardiovascular: Denies chest pain or edema. [] GI: Denies abdominal pain, nausea, vomiting, bloody stools or diarrhea. [] : Denies dysuria. [] Musculoskeletal: Positive back pain Integument: Denies rash. [] Neurologic: Denies headache, focal weakness or sensory changes. [] Endocrine: Denies polyuria or polydipsia. [] Lymphatic: Denies swollen glands. [] Psychiatric: Denies depression or anxiety. [] Heart Score: C/O Chest Pain: No Risk Factors: Risk Factors: DM, Current or recent (<one month) smoker, HTN, HLP, family histo ry of CAD, obesity. Risk Scores: Score 0 - 3: 2.5% MACE over next 6 weeks - Discharge Home Score 4 - 6: 20.3% MACE over next 6 weeks - Admit for Clinical Observation Score 7 - 10: 72.7% MACE over next 6 weeks - Early Invasive Strategies Current Medications: Current Medications Medications (Trade) Dose Ordered Sig/Shady Start Time Stop Time Status Last Admin Dose Admin Ketorolac Tromethamine (Toradol 15mg Vial) 15 mg 1X ONCE 12/15/21 12:15 12/15/21 12:16 DC 12/15/21 12:15 15 MG Allergies: Allergies: Allergies Coded Allergies Type Severity Reaction Last Updated Verified NSAIDS (Non-Steroidal Anti-Inflamma Adverse Reaction Intermediate renal dis ease 12/10/14 No morphine Adverse Reaction Intermediate confusion 12/10/14 No oxycodone Adverse Reaction Intermediate confusion able to take lortab and oxycontin 12/10/14 Yes tramadol Adverse Reaction Intermediate confusion 12/10/14 No Physical Exam: PE: Constitutional: Well developed, well nourished, obese, patient complaining of back pain. [] HENT: Normocephalic, atraumatic, bilateral external ears normal, oropharynx moist, no oral exudates, nose normal. [] Eyes: PERRLA, EOMI, conjunctiva normal, no discharge. [] Neck: Normal range of motion, no tenderness, supple, no stridor. [] Cardiovascular:Heart rate regular rhythm, no murmur [] Lungs & Thorax: Bilateral breath sounds clear to auscultation [] Abdomen: Bowel sounds normal, soft, no tenderness, no masses, no pulsatile masses. [] Skin: Warm, dry, no erythema, no rash. [] Back: No tenderness, no CVA tenderness. [] Extremities: No tenderness, no cyanosis, no clubbing, ROM intact, no edema. [] Neurologic: Alert and oriented X 1, normal motor function, normal sensory function, no focal deficits noted. [] Current Patient Data: Labs: Laboratory Tests Test 12/15/21 12:42 12/15/21 14:39 White Blood Count 14.1 x10^3/uL (4.0-11.0) H Red Blood Count 3.73 x10^6/uL (3.50-5.40) Hemoglobin 12.0 g/dL (12.0-15.5) Hematocrit 35.8 % (36.0-47.0) L Mean Corpuscular Volume 96 fL (79-100) Mean Corpuscular Hemoglobin 32 pg (25-35) Mean Corpuscular Hemoglobin Concent 34 g/dL (31-37) Red Cell Distribution Width 13.0 % (11.5-14.5) Platelet Count 362 x10^3/uL (140-400) Neutrophils (%) (Auto) 78 % (31-73) H Lymphocytes (%) (Auto) 13 % (24-48) L Monocytes (%) (Auto) 7 % (0-9) Eosinophils (%) (Auto) 1 % (0-3) Basophils (%) (Auto) 1 % (0-3) Neutrophils # (Auto) 11.0 x10^3/uL (1.8-7.7) H Lymphocytes # (Auto) 1.8 x10^3/uL (1.0-4.8) Monocytes # (Auto) 1.0 x10^3/uL (0.0-1.1) Eosinophils # (Auto) 0.2 x10^3/uL (0.0-0.7) Basophils # (Auto) 0.1 x10^3/uL (0.0-0.2) Sodium Level 136 mmol/L (136-145) Potassium Level 3.9 mmol/L (3.5-5.1) Chloride Level 99 mmol/L (98-107) Carbon Dioxide Level 27 mmol/L (21-32) Anion Gap 10 (6-14) Blood Urea Nitrogen 27 mg/dL (7-20) H Creatinine 1.1 mg/dL (0.6-1.0) H Estimated GFR (Cockcroft-Gault) 47.2 BUN/Creatinine Ratio 25 (6-20) H Glucose Level 104 mg/dL (70-99) H Calcium Level 9.8 mg/dL (8.5-10.1) Total Bilirubin 0.4 mg/dL (0.2-1.0) Aspartate Amino Transferase (AST) 12 U/L (15-37) L Alanine Aminotransferase (ALT) 12 U/L (14-59) L Alkaline Phosphatase 129 U/L (46-116) H Creatine Kinase 74 U/L (26-192) Troponin I High Sensitivity 11 ng/L (4-50) Total Protein 7.2 g/dL (6.4-8.2) Albumin 3.4 g/dL (3.4-5.0) Albumin/Globulin Ratio 0.9 (1.0-1.7) L Urine Collection Type U cath Urine Color (Auto) Light yellow Urine Turbidity Hazy Urine pH (Auto) 7.5 (<5.0-8.0) Urine Specific [place] 1.017 (1.000-1.030) Urine Protein (Auto) Negative mg/dL (Negative) Urine Glucose (Auto)(UA) Negative mg/dL (Negative) Urine Ketones (Auto) Negative mg/dL (Negative) Urine Blood (Auto) Negative (Negative) Urine Nitrite Negative (Negative) Urine Bilirubin (Auto) Negative (Negative) Urine Urobilinogen (Auto) Normal mg/dL (Normal) Urine Leukocyte Esterase (Auto) Negative (Negative) Urine RBC 1-2 /HPF (0-2) Urine WBC 0 /HPF (0-4) Urine Squamous Epithelial Cells Few /LPF Urine Amorphous Sediment Present /HPF Urine Bacteria 0 /HPF (0-FEW) Urine Hyaline Casts Occasional /HPF Urine Mucus Slight /LPF Laboratory Tests 12/15/21 12:42 Laboratory Tests 12/15/21 12:42 Vital Signs: Vital Signs Date Time Temp Pulse Resp B/P (MAP) Pulse Ox O2 Delivery O2 Flow Rate FiO2 12/15/21 13:07 88 16 148/66 (93) 95 Room Air 12/15/21 12:02 98.4 98.4 EKG: EKG: [] Radiology/Procedures: Radiology/Procedures: Chest x-ray within normal limits with elevated right hemidiaphragm Lumbar spine with degenerative multilevel disc and facet disease of the lumbar spine [] Impression: Low back pain, weakness Course & Med Decision Making: Course & Med Decision Making Pertinent Labs and Imaging studies reviewed. (See chart for details) 86-year-old female presenting with low back pain consistent with degenerative changes of the spine. Urinalysis within normal limits, patient was given 15 mg of Toradol which took care of her pain. Patient was able to sleep after that. Patient is unable to ambulate at this time, last week she was able to. She feels weak as well. Labs are within normal limits with slight leukocytosis. No other source of infection, likely due to severe pain for the last couple of days. Patient may need pain control and rehabilitation acutely, patient stays at assisted living facility. Patient admitted to the service of Dr. Cast who accepts the patient, patient admitted in normal hemodynamically stable condition. Dragon Disclaimer: Archanaon Disclaimer: This electronic medical record was generated, in whole or in part, using a voice recognition dictation system. Departure Departure Impression: Primary Impression: Weakness Additional Impression: Back pain Disposition: ADMITTED INPATIENT Condition: GOOD EVAN HODGE MD December 15, 2021 15:05
--- NOTE | 2021-12-15 15:24 | PDOC1 ---
History and Physical Date of Admission Date of Admission DATE: 12/15/21 TIME: 15:21 Identification/Chief Complaint Chief Complaint Back pain, unable to walk Source Source: Caregiver, Chart review, Patient History of Present Illness History of Present Illness Ms Spicer is an 86yo female w/ PMHx hypothyroidism, hyperlipidemia, dementia, hypertension, constipation, chronic kidney disease who presents by EMS from healthcare [facility] assisted living side for back pain and inability to walk for the past 7 days prior to arrival. For the past 2 days she has been wheelchair bound. Due to her dementia it has been intermittently difficult to localize her pain but her daughter notes that when she is having acute pain sometimes she complains of left hip pain but her consistent pain complaint is focal spinal between L1 and L2 when she points and radiates into her right buttock. Positive straight leg raise. Patient denies pain, nausea, vomiting, diarrhea, pain with urination, abdominal pain, back pain, headache, dizziness, weakness, numbness or tingling, falling, hitting her head. Patient is alert to her name, she knows where she is at, month and day she was born but not year, does not know the year, the date, season, the month. When laying flat in bed patient has no complaints at all WBC 14, HB 12, platelets 362, NA 136, K3.9, BUN 27, CR 1.1, glucose 104 calcium 9.8, bilirubin 0.4 AST 12 ALT 12 alkaline phosphatase 129 CK 74, high- sensitivity troponin is 11, albumin 3.4 Chest radiograph with elevated right hemidiaphragm otherwise no acute findings. Lumbar radiograph with DJD otherwise no acute fracture. She was given a one-time dose 15 mg of IV Toradol in the ED and fell asleep for about an hour. Her daughter notes that NSAIDs and some opioids are listed as allergies however they are not actually allergies when she was younger they were listed as intolerances. Upon trying to stand the patient in the room she cries out in pain. Past Medical History Cardiovascular: HTN, Hyperlipidemia CENTRAL NERVOUS SYSTEM: Dementia Endocrine: Hypothyroidism Past Surgical History Past Surgical History: Appendectomy, Cataract Removal, Total knee replacement, Hysterectomy Family History Family History: Hypertension Social History Smoke: No ALCOHOL: none Drugs: None Current Problem List Problem List Problems Medical Problems: (1) Back pain Status: Acute (2) Weakness Status: Acute Current Medications Current Medications Current Medications Ketorolac Tromethamine (Toradol 15mg Vial) 15 mg 1X ONCE IVP Last administered on 12/15/21at 12:15; Start 12/15/21 at 12:15; Stop 12/15/21 at 12:16; Status DC Active Scripts Active Fosfomycin Tromethamine 3 Gm Packet 3 Gm PO ONCE 1 Days Amlodipine Besylate 5 Mg Tablet 5 Mg PO DAILY 30 Days Tessalon Perle (Benzonatate) 100 Mg Capsule 1 Cap PO TID Reported Namenda (Memantine Hcl) 10 Mg Tablet 10 Mg PO DAILY Lovastatin 40 Mg Tablet 40 Mg PO HS Losartan-Hctz 100-25 Mg Tab (Losartan/Hydrochlorothiazide) 1 Each Tablet 1 Each PO DAILY B-12 (Cyanocobalamin (Vitamin B-12)) 1,000 Mcg Tablet 1,000 Mcg PO DAILY Benefiber (Guar Gum) 1 Each Packet 1 Each PO DAILY Donepezil Hcl 5 Mg Tablet 5 Mg PO HS Levothyroxine Sodium 100 Mcg Tablet 100 Mcg PO DAILYAC Allergies Allergies: Coded Allergies: NSAIDS (Non-Steroidal Anti-Inflamma (Unverified Adverse Reaction, Intermediate, renal disease, 12/10/14) morphine (Unverified Adverse Reaction, Intermediate, confusion, 12/10/14) oxycodone (Verified Adverse Reaction, Intermediate, confusion able to take lortab and oxycontin, 12/10/14) tramadol (Unverified Adverse Reaction, Intermediate, confusion, 12/10/14) ROS Review of System Advanced dementia patient has no complaints but not reliable due to lack of orientation General: No: Chills, Night Sweats, Fatigue, Malaise, Appetite, Other PSYCHOLOGICAL ROS: No: Anxiety, Behavioral Disorder, Concentration difficultie, Decreased libido, Depression, Disorientation, Hallucinations, Hostility, Irritablity, Memory difficulties, Mood Swings, Obsessive thoughts, Physical abuse, Sexual abuse, Sleep disturbances, Suicidal ideation, Other Eyes: No Blurry vision, No Decreased vision, No Double vision, No Dry eyes, No Excessive tearing, No Eye Pain, No Itchy Eyes, No Loss of vision, No Photophobia, No Scotomata, No Uses contacts, No Uses glasses, No Other HEENT: No: Heacaches, Visual Changes, Hearing change, Nasal congestion, Nasal discharge, Oral lesions, Sinus pain, Sore Throat, Epistaxis, Sneezing, Snoring, Tinnitus, Vertigo, Vocal changes, Other ALLERGY AND IMMUNOLOGY: No: Hives, Insect Bite Sensitivity, Itchy/Watery Eyes, Nasal Congestion, Post Nasal Drip, Seasonal Allergies, Other Hematological and Lymphatic: No: Bleeding Problems, Blood Clots, Blood Transfusions, Brusing, Night Sweats, Pallor, Swollen Lymph Nodes, Other ENDOCRINE: No: Breast Changes, Galactorrhea, Hair Pattern Changes, Hot Flashes, Malaise/lethargy, Mood Swings, Palpitations, Polydipsia/polyuria, Skin Changes, Temperature Intolerance, Unexpected Weight Changes, Other Breast: No New/Changing Breast Lumps, No Nipple changes, No Nipple discharge, No Other Respiratory: No: Cough, Hemoptysis, Orthopnea, Pleuritic Pain, Shortness of breath, SOB with excertion, Sputum Changes, Stridor, Tachypnea, Wheezing, Other Cardiovascular: No Chest Pain, No Palpitations, No Orthopnea, No Paroxysmal Noc. Dyspnea, No Edema, No Lt Headedness, No Other Gastrointestinal: No Nausea, No Vomiting, No Abdominal Pain, No Diarrhea, No Constipation, No Melena, No Hematochezia, No Other Genitourinary: No Dysuria, No Frequency, No Incontinence, No Hematuria, No Retention, No Discharge, No Urgency, No Pain, No Flank Pain, No Other, No , No , No , No , No , No , No Musculoskeletal: Yes Gait Disturbance, Yes Joint Pain; No Joint Stiffness, No Joint Swelling, No Muscle Pain, No Muscular Weakness, No Pain In:, No Swelling In:, No Other Neurological: No Behavorial Changes, No Bowel/Bladder ControlChng, No Confusion, No Dizziness, No Gait Disturbance, No Headaches, No Impaired Coord/balance, No Memory Loss, No Numbness/Tingling, No Seizures, No Speech Problems, No Tremors, No Visual Changes, No Weakness, No Other Skin: No Dry Skin, No Eczema, No Hair Changes, No Lumps, No Mole Changes, No Mottling, No Nail Changes, No Pruritus, No Rash, No Skin Lesion Changes, No Other, No Acne Physical Exam General: Alert, Cooperative, No acute distress HEENT: Atraumatic, PERRLA, EOMI, Mucous membr. moist/pink Lungs: Clear to auscultation, Normal air movement Heart: S1S2, RRR, no thrills, no rubs, no gallops, no murmurs Abdomen: Normal bowel sounds, Soft, No tenderness, No hepatosplenomegaly, No masses Rectal Exam: not examined Extremities: No clubbing, No cyanosis, No edema, Normal pulses, Other (Focal L1-L2 tenderness right gluteal tenderness) Neuro: Strength at 5/5 X4 ext, Normal tone, Sensation intact, Cranial nerves 3- 12 NL, Reflexes 2+ Vitals Vitals Vital Signs Date Time Temp Pulse Resp B/P (MAP) Pulse Ox O2 Delivery O2 Flow Rate FiO2 12/15/21 13:07 88 16 148/66 (93) 95 Room Air 12/15/21 12:02 98.4 98.4 Labs Labs Laboratory Tests Test 12/15/21 12:42 12/15/21 14:39 White Blood Count 14.1 x10^3/uL (4.0-11.0) Red Blood Count 3.73 x10^6/uL (3.50-5.40) Hemoglobin 12.0 g/dL (12.0-15.5) Hematocrit 35.8 % (36.0-47.0) Mean Corpuscular Volume 96 fL (79-100) Mean Corpuscular Hemoglobin 32 pg (25-35) Mean Corpuscular Hemoglobin Concent 34 g/dL (31-37) Red Cell Distribution Width 13.0 % (11.5-14.5) Platelet Count 362 x10^3/uL (140-400) Neutrophils (%) (Auto) 78 % (31-73) Lymphocytes (%) (Auto) 13 % (24-48) Monocytes (%) (Auto) 7 % (0-9) Eosinophils (%) (Auto) 1 % (0-3) Basophils (%) (Auto) 1 % (0-3) Neutrophils # (Auto) 11.0 x10^3/uL (1.8-7.7) Lymphocytes # (Auto) 1.8 x10^3/uL (1.0-4.8) Monocytes # (Auto) 1.0 x10^3/uL (0.0-1.1) Eosinophils # (Auto) 0.2 x10^3/uL (0.0-0.7) Basophils # (Auto) 0.1 x10^3/uL (0.0-0.2) Sodium Level 136 mmol/L (136-145) Potassium Level 3.9 mmol/L (3.5-5.1) Chloride Level 99 mmol/L (98-107) Carbon Dioxide Level 27 mmol/L (21-32) Anion Gap 10 (6-14) Blood Urea Nitrogen 27 mg/dL (7-20) Creatinine 1.1 mg/dL (0.6-1.0) Estimated GFR (Cockcroft-Gault) 47.2 BUN/Creatinine Ratio 25 (6-20) Glucose Level 104 mg/dL (70-99) Calcium Level 9.8 mg/dL (8.5-10.1) Total Bilirubin 0.4 mg/dL (0.2-1.0) Aspartate Amino Transf (AST/SGOT) 12 U/L (15-37) Alanine Aminotransferase (ALT/SGPT) 12 U/L (14-59) Alkaline Phosphatase 129 U/L (46-116) Creatine Kinase 74 U/L (26-192) Troponin I High Sensitivity 11 ng/L (4-50) Total Protein 7.2 g/dL (6.4-8.2) Albumin 3.4 g/dL (3.4-5.0) Albumin/Globulin Ratio 0.9 (1.0-1.7) Urine Collection Type U cath Urine Color (Auto) Light yellow Urine Turbidity Hazy Urine pH (Auto) 7.5 (<5.0-8.0) Urine Specific [place] 1.017 (1.000-1.030) Urine Protein (Auto) Negative mg/dL (Negative) Urine Glucose (Auto)(UA) Negative mg/dL (Negative) Urine Ketones (Auto) Negative mg/dL (Negative) Urine Blood (Auto) Negative (Negative) Urine Nitrite Negative (Negative) Urine Bilirubin (Auto) Negative (Negative) Urine Urobilinogen (Auto) Normal mg/dL (Normal) Urine Leukocyte Esterase (Auto) Negative (Negative) Urine RBC 1-2 /HPF (0-2) Urine WBC 0 /HPF (0-4) Urine Squamous Epithelial Cells Few /LPF Urine Amorphous Sediment Present /HPF Urine Bacteria 0 /HPF (0-FEW) Urine Hyaline Casts Occasional /HPF Urine Mucus Slight /LPF Laboratory Tests Test 12/15/21 12:42 12/15/21 14:39 White Blood Count 14.1 x10^3/uL (4.0-11.0) Red Blood Count 3.73 x10^6/uL (3.50-5.40) Hemoglobin 12.0 g/dL (12.0-15.5) Hematocrit 35.8 % (36.0-47.0) Mean Corpuscular Volume 96 fL (79-100) Mean Corpuscular Hemoglobin 32 pg (25-35) Mean Corpuscular Hemoglobin Concent 34 g/dL (31-37) Red Cell Distribution Width 13.0 % (11.5-14.5) Platelet Count 362 x10^3/uL (140-400) Neutrophils (%) (Auto) 78 % (31-73) Lymphocytes (%) (Auto) 13 % (24-48) Monocytes (%) (Auto) 7 % (0-9) Eosinophils (%) (Auto) 1 % (0-3) Basophils (%) (Auto) 1 % (0-3) Neutrophils # (Auto) 11.0 x10^3/uL (1.8-7.7) Lymphocytes # (Auto) 1.8 x10^3/uL (1.0-4.8) Monocytes # (Auto) 1.0 x10^3/uL (0.0-1.1) Eosinophils # (Auto) 0.2 x10^3/uL (0.0-0.7) Basophils # (Auto) 0.1 x10^3/uL (0.0-0.2) Sodium Level 136 mmol/L (136-145) Potassium Level 3.9 mmol/L (3.5-5.1) Chloride Level 99 mmol/L (98-107) Carbon Dioxide Level 27 mmol/L (21-32) Anion Gap 10 (6-14) Blood Urea Nitrogen 27 mg/dL (7-20) Creatinine 1.1 mg/dL (0.6-1.0) Estimated GFR (Cockcroft-Gault) 47.2 BUN/Creatinine Ratio 25 (6-20) Glucose Level 104 mg/dL (70-99) Calcium Level 9.8 mg/dL (8.5-10.1) Total Bilirubin 0.4 mg/dL (0.2-1.0) Aspartate Amino Transf (AST/SGOT) 12 U/L (15-37) Alanine Aminotransferase (ALT/SGPT) 12 U/L (14-59) Alkaline Phosphatase 129 U/L (46-116) Creatine Kinase 74 U/L (26-192) Troponin I High Sensitivity 11 ng/L (4-50) Total Protein 7.2 g/dL (6.4-8.2) Albumin 3.4 g/dL (3.4-5.0) Albumin/Globulin Ratio 0.9 (1.0-1.7) Urine Collection Type U cath Urine Color (Auto) Light yellow Urine Turbidity Hazy Urine pH (Auto) 7.5 (<5.0-8.0) Urine Specific [place] 1.017 (1.000-1.030) Urine Protein (Auto) Negative mg/dL (Negative) Urine Glucose (Auto)(UA) Negative mg/dL (Negative) Urine Ketones (Auto) Negative mg/dL (Negative) Urine Blood (Auto) Negative (Negative) Urine Nitrite Negative (Negative) Urine Bilirubin (Auto) Negative (Negative) Urine Urobilinogen (Auto) Normal mg/dL (Normal) Urine Leukocyte Esterase (Auto) Negative (Negative) Urine RBC 1-2 /HPF (0-2) Urine WBC 0 /HPF (0-4) Urine Squamous Epithelial Cells Few /LPF Urine Amorphous Sediment Present /HPF Urine Bacteria 0 /HPF (0-FEW) Urine Hyaline Casts Occasional /HPF Urine Mucus Slight /LPF Images Images LUMBAR SPINE 2-3V XR LUMBAR SPINE 2-3V History: Pain. Comparison: MRI lumbar spine 05/22/2014 Technique: 3 views of the lumbar spine. Findings: There are 5 non-rib bearing lumbar vertebral segments. There is no evidence of fracture. No destructive osseous lesions. Levoconvex curvature of the lumbar spine. Straightening of the normal lumbar lordosis. Multilevel advanced facet hypertrophic degenerative changes. Advanced multilevel degenerative disc disease with endplate osteophytes and severe disc height narrowing. Sacroiliac joints are unremarkable. Atherosclerotic calcifications of the aorta. IMPRESSION: 1. 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 CHEST PA & LATERAL PA and lateral chest. HISTORY: Cough PA and lateral views were taken of the chest. There is elevation the right diaphragm. Heart is upper normal or mildly enlarged. There is no pleural effusion. There is atherosclerotic change in the aorta. There are no acute infiltrates. IMPRESSION: 1. Elevated right diaphragm. 2. No acute infiltrates. VTE Prophylaxis Ordered VTE Prophylaxis Devices: No VTE Pharmacological Prophylaxi: Yes Assessment/Plan Assessment/Plan Intractable back pain -with radiation to right leg seems to be acute sciatica lumbar radiculopathy possibly from bulging lumbar disc. We will manage pain and graded physical therapy program PMNR consult Unable to walk -see above. No concern for occult fracture there have been no falls family is aware of. Leukocytosis -no clear infectious etiology this could be a reactive leukocytosis due to her pain complaints. We will check inflammatory markers if they are significantly elevated will order CT lumbar spine with contrast to assess for possible discitis. Hypothyroidism - cont home meds Hyperlipidemia - cont statin Dementia - likely alzheimer type. Frequent redirection, light during the day, as needed Zyprexa if patient becomes agitated. Hypertension - cont home meds. Goal BP in the elderly has been adjusted to 150/90 will maintain blood pressure at or below this range Constipation - bowel regimen Chronic kidney disease 1 FEN - Regular diet PPX - heparin CODE - DNR/DNI Dispo - inpatient for above Justifications for Admission Other Justification JONATHAN MARQUEZ MD December 15, 2021 15:24
[2021-12-15] MEDS ORDERED: ONDANSETRON PF 4 MG/2 ML VIAL. IVP PRN (15:30)
[2021-12-15] MEDS ORDERED: ACETAMINOPHEN 325 MG TABLET. PO PRN (15:30)
[2021-12-15] MEDS ORDERED: fentaNYL PF VIAL 100 MCG/2 ML VIAL IVP PRN (17:45)
[2021-12-15] MEDS ORDERED: IV NORMAL SALINE 1000ML BAG 1,000 ML IV ONE (18:00)
[2021-12-15] MEDS ORDERED: POLYETHYLENE GLYCOL 3350 17 GM PACKET. PO ONE (18:15)
[2021-12-15] MEDS ORDERED: SENNOSIDES/DOCUSATE 8.6/50MG TABLET. PO PRN (18:15)
[2021-12-15] MEDS ORDERED: FLUT16SP NS (18:40)
[2021-12-15] MEDS ORDERED: HYDR25TA10 PO (18:40)
[2021-12-15] MEDS ORDERED: OMEP20CA16 PO (18:40)
[2021-12-15] MEDS ORDERED: LOSA100T14 PO (18:40)
[2021-12-15] MEDS ORDERED: MEMA10TA56 PO (18:40)
[2021-12-15] MEDS ORDERED: LEVO112T49 PO (18:40)
[2021-12-15] MEDS ORDERED: AMLO2.5T5 PO (18:40)
[2021-12-15] MEDS ORDERED: ACET325T21 PO (19:05)
[2021-12-15] MEDS ORDERED: CYAN100031 PO (19:05)
[2021-12-15] MEDS ORDERED: LIDO700A21 TP (19:05)
[2021-12-15] MEDS ORDERED: WHEA1POW8 PO (19:05)
[2021-12-15] MEDS ORDERED: DOCU100C28 PO (19:05)
[2021-12-15 19:20] VITALS: BP 114/72
[2021-12-15] MEDS: PSYLLIUM HUSK (SUGAR FREE) 1 PKT PACKET PO SCH (20:06)
[2021-12-15] MEDS: methylPREDNISolone SOD SUCC PF 40 MG/ML VIAL. IV SCH (20:07)
[2021-12-15] MEDS: HEPARIN for SUB-Q USE 5,000 UNIT/ML VIAL. SQ SCH (22:00)
[2021-12-15 23:45] VITALS: BP 162/77
[2021-12-16 03:03] VITALS: BP 151/73
[2021-12-16] MEDS: methylPREDNISolone SOD SUCC PF 40 MG/ML VIAL. IV SCH ×2 (03:23→11:28)
[2021-12-16] MEDS: HEPARIN for SUB-Q USE 5,000 UNIT/ML VIAL. SQ SCH ×3 (06:38→21:32)
[2021-12-16 07:00] VITALS: BP 170/74
[2021-12-16 07:14] LABS: BASO % 0 % (0-3); EOS % 0 % (0-3); HEMATOCRIT 35.8 % (36.0-47.0); HEMOGLOBIN 12.6 g/dL (12.0-15.5); LYMPH # 0.9 x10^3/uL (1.0-4.8); LYMPH % 13 % (24-48); MEAN CORPUSCULAR HEMOGLOBIN 34 pg (25-35); MEAN CORPUSCULAR HGB CONC 35 g/dL (31-37); MEAN CORPUSCULAR VOLUME 96 fL (79-100); MONO # 0.1 x10^3/uL (0.0-1.1); MONO % 1 % (0-9); NEUT # 6.1 x10^3/uL (1.8-7.7); NEUT % 86 % (31-73); PLATELET COUNT 365 x10^3/uL (140-400); RED BLOOD COUNT 3.73 x10^6/uL (3.50-5.40); RED CELL DISTRIBUTION WIDTH 12.5 % (11.5-14.5); WHITE BLOOD COUNT 7.1 x10^3/uL (4.0-11.0)
[2021-12-16 07:21] LABS: ALBUMIN 2.9 g/dL (3.4-5.0); ALBUMIN/GLOBULIN RATIO 0.6 (1.0-1.7); CALCIUM 9.6 mg/dL (8.5-10.1); GFR 52.7; POTASSIUM 3.7 mmol/L (3.5-5.1); TOTAL BILIRUBIN 0.3 mg/dL (0.2-1.0); TOTAL PROTEIN 7.4 g/dL (6.4-8.2)
--- NOTE | 2021-12-16 08:06 | PDOC ---
[employer] PROGRESS NOTE Date of Service DOS: DATE: 12/16/21 TIME: 08:04 Chief Complaint Chief Complaint Intractable back pain Inability to walk History of the following; hypothyroidism, hyperlipidemia, dementia, hypertension, constipation, chronic kidney disease History of Present Illness History of Present Illness 12/17/2019 Patient seen and examined Discussed with RN Chart reviewed Awaiting Dr. Beaver consultation Vitals/I&O Vitals/I&O: Vital Signs Date Time Temp Pulse Resp B/P (MAP) Pulse Ox O2 Delivery O2 Flow Rate FiO2 12/16/21 07:00 97.9 87 18 170/74 (106) 95 Room Air 97.9 I & O 12/15/21 12/15/21 12/16/21 15:00 23:00 07:00 Intake Total 240 ml Output Total 300 ml Balance -60 ml Physical Exam General: Alert, Cooperative, No acute distress Lungs: Clear Abdomen: Normal bowel sounds, Soft, No tenderness, No hepatosplenomegaly, No masses Extremities: No clubbing, No cyanosis, No edema, Normal pulses, Other Labs Labs: Laboratory Tests Test 12/15/21 12:42 12/15/21 14:39 12/16/21 06:50 White Blood Count 14.1 x10^3/uL (4.0-11.0) 7.1 x10^3/uL (4.0-11.0) Red Blood Count 3.73 x10^6/uL (3.50-5.40) 3.73 x10^6/uL (3.50-5.40) Hemoglobin 12.0 g/dL (12.0-15.5) 12.6 g/dL (12.0-15.5) Hematocrit 35.8 % (36.0-47.0) 35.8 % (36.0-47.0) Mean Corpuscular Volume 96 fL (79-100) 96 fL (79-100) Mean Corpuscular Hemoglobin 32 pg (25-35) 34 pg (25-35) Mean Corpuscular Hemoglobin Concent 34 g/dL (31-37) 35 g/dL (31-37) Red Cell Distribution Width 13.0 % (11.5-14.5) 12.5 % (11.5-14.5) Platelet Count 362 x10^3/uL (140-400) 365 x10^3/uL (140-400) Neutrophils (%) (Auto) 78 % (31-73) 86 % (31-73) Lymphocytes (%) (Auto) 13 % (24-48) 13 % (24-48) Monocytes (%) (Auto) 7 % (0-9) 1 % (0-9) Eosinophils (%) (Auto) 1 % (0-3) 0 % (0-3) Basophils (%) (Auto) 1 % (0-3) 0 % (0-3) Neutrophils # (Auto) 11.0 x10^3/uL (1.8-7.7) 6.1 x10^3/uL (1.8-7.7) Lymphocytes # (Auto) 1.8 x10^3/uL (1.0-4.8) 0.9 x10^3/uL (1.0-4.8) Monocytes # (Auto) 1.0 x10^3/uL (0.0-1.1) 0.1 x10^3/uL (0.0-1.1) Eosinophils # (Auto) 0.2 x10^3/uL (0.0-0.7) 0.0 x10^3/uL (0.0-0.7) Basophils # (Auto) 0.1 x10^3/uL (0.0-0.2) 0.0 x10^3/uL (0.0-0.2) Erythrocyte Sedimentation Rate 49 (0-25) Sodium Level 136 mmol/L (136-145) 136 mmol/L (136-145) Potassium Level 3.9 mmol/L (3.5-5.1) 3.7 mmol/L (3.5-5.1) Chloride Level 99 mmol/L (98-107) 102 mmol/L (98-107) Carbon Dioxide Level 27 mmol/L (21-32) 25 mmol/L (21-32) Anion Gap 10 (6-14) 9 (6-14) Blood Urea Nitrogen 27 mg/dL (7-20) 24 mg/dL (7-20) Creatinine 1.1 mg/dL (0.6-1.0) 1.0 mg/dL (0.6-1.0) Estimated GFR (Cockcroft-Gault) 47.2 52.7 BUN/Creatinine Ratio 25 (6-20) 24 (6-20) Glucose Level 104 mg/dL (70-99) 174 mg/dL (70-99) Calcium Level 9.8 mg/dL (8.5-10.1) 9.6 mg/dL (8.5-10.1) Total Bilirubin 0.4 mg/dL (0.2-1.0) 0.3 mg/dL (0.2-1.0) Aspartate Amino Transf (AST/SGOT) 12 U/L (15-37) 14 U/L (15-37) Alanine Aminotransferase (ALT/SGPT) 12 U/L (14-59) 14 U/L (14-59) Alkaline Phosphatase 129 U/L (46-116) 119 U/L (46-116) Creatine Kinase 74 U/L (26-192) Troponin I High Sensitivity 11 ng/L (4-50) C-Reactive Protein, Quantitative 87.9 mg/L (0-3.3) Total Protein 7.2 g/dL (6.4-8.2) 7.4 g/dL (6.4-8.2) Albumin 3.4 g/dL (3.4-5.0) 2.9 g/dL (3.4-5.0) Albumin/Globulin Ratio 0.9 (1.0-1.7) 0.6 (1.0-1.7) Urine Collection Type U cath Urine Color (Auto) Light yellow Urine Turbidity Hazy Urine pH (Auto) 7.5 (<5.0-8.0) Urine Specific [place] 1.017 (1.000-1.030) Urine Protein (Auto) Negative mg/dL (Negative) Urine Glucose (Auto)(UA) Negative mg/dL (Negative) Urine Ketones (Auto) Negative mg/dL (Negative) Urine Blood (Auto) Negative (Negative) Urine Nitrite Negative (Negative) Urine Bilirubin (Auto) Negative (Negative) Urine Urobilinogen (Auto) Normal mg/dL (Normal) Urine Leukocyte Esterase (Auto) Negative (Negative) Urine RBC 1-2 /HPF (0-2) Urine WBC 0 /HPF (0-4) Urine Squamous Epithelial Cells Few /LPF Urine Amorphous Sediment Present /HPF Urine Bacteria 0 /HPF (0-FEW) Urine Hyaline Casts Occasional /HPF Urine Mucus Slight /LPF Assessment and Plan Assessmemt and Plan Problems Medical Problems: (1) Back pain Status: Acute (2) Weakness Status: Acute Intractable back pain Inability to walk History of the following; hypothyroidism, hyperlipidemia, dementia, hypertension, constipation, chronic kidney disease Plan As needed pain meds Await Dr. Beaver consultation Home meds DVT prophylaxis PT OT Comment Review of Relevant I have reviewed the following items pauline (where applicable) has been applied. Medications: Current Medications Medications (Trade) Dose Ordered Sig/Shady Route PRN Reason Start Time Stop Time Status Last Admin Dose Admin Ketorolac Tromethamine (Toradol 15mg Vial) 15 mg 1X ONCE IVP 12/15/21 12:15 12/15/21 12:16 DC 12/15/21 12:15 Heparin Sodium (Porcine) (Heparin Sodium) 5,000 unit Q8HRS SQ 12/15/21 22:00 12/16/21 06:38 Methylprednisolone Sodium Succinate (SOLU-Medrol 40MG VIAL) 40 mg Q8H IV 12/15/21 19:00 12/16/21 11:01 12/16/21 03:23 Sodium Chloride 1,000 ml @ 125 mls/hr 1X ONCE IV 12/15/21 18:00 12/16/21 01:59 DC 12/15/21 20:06 Psyllium Hydrophilic Mucilloid (Metamucil Fiber Packet) 1 pkt QHS PO 12/15/21 21:00 12/15/21 20:06 Polyethylene Glycol (miraLAX PACKET) 17 gm 1X ONCE PO 12/15/21 18:15 12/15/21 18:16 DC 12/15/21 20:06 Justifications for Admission Other Justification MANDY ORDAZ III DO December 16, 2021 08:06
[2021-12-16] MEDS: POLYETHYLENE GLYCOL 3350 17 GM PACKET. PO SCH (09:27)
[2021-12-16 11:00] VITALS: BP 163/74
[2021-12-16] MEDS: DICLOFENAC SODIUM 1% TOPICAL GEL 100GM TUBE. TP SCH ×2 (11:29→20:59)
[2021-12-16] MEDS: traMADol 50 MG TABLET PO PRN (13:44)
[2021-12-16 15:00] VITALS: BP 155/74
--- NOTE | 2021-12-16 16:00 | RAD ---
Exam: XR BILATERAL HIP (WITH OR WITHOUT PELVIS) 1 VIEW History: Left hip pain Comparison: Lumbar spine CT 12/16/21. Technique: AP view the pelvis. Coned-down views of the right and left hips. Findings: Osseous mineralization is normal. No acute fracture or dislocation. Minimal degenerative changes of t he femoral acetabular joints. Multiple pelvic phleboliths. Degenerative changes of lower lumbar spine . Soft tissues are unremarkable. Impression: 1. No acute osseous abnormality in the pelvis and bilateral hips. Mild degenerative changes. Electronically signed by: Jessee Rendon MD (12/16/2021 3:19 PM) [id number]
--- NOTE | 2021-12-16 16:11 | RAD ---
CT LUMBAR SPINE WO History: Concern for discitis. Technique: Noncontrast CT was performed of the lumbar spine. Multiplanar reconstructions were perform ed. Comparison: MRI lumbar spine 05/22/2014. CT chest 06/08/2021. Findings: There are 5 nonrib-bearing lumbar vertebral segments. Levoconvex curvature with apex at L3-L4 similar to comparisons. Straightening of the normal lumbar lordosis. No acute fracture. No aggressive osseou s erosive process is identified. T12-L1: Bilateral mild facet hypertrophy. No significant spinal canal or foraminal stenosis. L1-L2: Mild disc bulge and bilateral facet hypertrophy. No significant spinal canal or foraminal sten osis. L2-L3: Mild disc height loss and mild disc bulge and bilateral facet hypertrophy. No significant spin al canal or foraminal stenosis. L3-L4: Moderate disc height loss and moderate disc bulge with calcifications narrows the spinal canal to approximately 9 mm AP. Bilateral facet hypertrophy cause moderate right neural foraminal narrowin g. L4-L5: Disc height loss and disc bulge with bilateral facet hypertrophy cause narrowing of the spinal canal to approximately 8 mm AP and severe bilateral foraminal stenosis. L5-S1: Moderate disc height loss and facet hypertrophy cause severe left neural foraminal stenosis an d mild right neural foraminal stenosis. Incidentally visualized abdominal pelvic contents demonstrate bilateral renal atrophy, right renal cy st, aortoiliac atherosclerotic calcification and sigmoid diverticulosis. Impression: 1. No aggressive osseous erosive process to suggest discitis osteomyelitis. 2. Multilevel degenerative disc and facet disease of the lumbar spine with spinal canal narrowing an d neural foraminal stenosis as above. There is potential for symptomatic radiculopathy at multiple le vels. Consider lumbar spine MRI for further characterization. Exposure: One or more of the following individualized dose reduction techniques were utilized for thi s examination: 1. Automated exposure control 2. Adjustment of the mA and/or kV according to patient size 3. Use of iterative reconstruction technique. Electronically signed by: Jessee Rendon MD (12/16/2021 4:09 PM) [id number]
[2021-12-16 19:00] VITALS: BP 141/66
[2021-12-16] MEDS: PSYLLIUM HUSK (SUGAR FREE) 1 PKT PACKET PO SCH (20:59)
[2021-12-16 23:03] VITALS: BP 147/65
[2021-12-17 03:04] VITALS: BP 165/72
--- NOTE | 2021-12-17 04:49 | CONS ---
DATE OF CONSULTATION: 12/16/2021 ATTENDING PHYSICIAN: Ry Hanson MD REASON FOR CONSULTATION: The patient was seen at the request of Dr. Machuca for rehab evaluation. HISTORY OF PRESENT ILLNESS: This is an 86-year-old right-handed female with known hypothyroidism, hyperlipidemia, dementia, hypertension, chronic constipation, chronic kidney disease. She was transferred from [facility] with complaints of back pain and inability to walk for the last 7 days prior to arrival. Two days prior to the arrival, she has been wheelchair bound and due to her dementia, it has been intermittently difficult to localize her pain, but her daughter notes that when she is having acute pain sometimes she complains of left hip pain, but her consistent pain complaint is focal spinal between L1 and L2 when she points and radiates to her right buttock. Straight leg raising test is positive. No history of any falls. She had radiological studies, which failed to reveal any acute lesion other than degenerative changes. The patient had intolerance taking nonsteroidal anti-inflammatory medication and opioids. The patient denies any pain at present time, she states that she slept good. The patient is status post appendectomy, cataract surgery, right total knee arthroplasty, hysterectomy, family history of hypertension. PHYSICAL EXAMINATION: GENERAL: Today revealed an elderly female. She is alert, oriented to place and person, follows commands appropriately. NEUROLOGIC: Moves all 4 extremities voluntarily where she had 4+/5 grade muscle strength. Deep tendon reflexes are decreased overall with absent ankle jerks and right knee jerk. She had equal perception of touch and pinprick sensation bilaterally. She had crepitus on range of motion of her left knee joint. The patient had no significant pain on range of motion of her lower extremity or upper extremity joints. No tenderness to palpation over lumbar spine area, sacroiliac joint area, or trochanteric bursa. The patient requires help with bed mobility and transfers. Once up, she made a few steps at bedside using a roller walker. 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 Her skin is intact at this time. She had an indwelling [place] catheter in place. ASSESSMENT: Elderly female with known hypothyroidism, hyperlipidemia, dementia, hypertension, chronic kidney disease and radiological evidence of multilevel degenerative disk disease and degenerative joint disease of lumbar vertebrae with some degree of central spinal and neural foraminal compromise and degenerative joint disease of left knee, admitted with complaints of back pain. The patient presents with mobility and self-care limitations and clinical evidence of peripheral neuropathy. RECOMMENDATIONS: To obtain x-rays of her pelvis. To consider injecting painful left knee if left knee pain is interfering with her mobility. Agree with the plan for physical therapy and occupational therapy. Dr. Machuca, I appreciate asking me to participate in the care of this interesting patient. I will be glad to see her for followup with you on as needed basis. RENEE/BAM/ALEXIA DR: RENEE/ciro TID: [id number]
[2021-12-17] MEDS: HEPARIN for SUB-Q USE 5,000 UNIT/ML VIAL. SQ SCH ×3 (06:36→21:33)
[2021-12-17 07:00] VITALS: BP 173/80
[2021-12-17] MEDS: POLYETHYLENE GLYCOL 3350 17 GM PACKET. PO SCH (09:00)
--- NOTE | 2021-12-17 09:46 | PDOC ---
PROGRESS NOTES Date of Service DATE: 12/17/21 TIME: 09:38 Subjective Subjective She c/o pain in her back. Objective Objective Vital Signs Date Time Temp Pulse Resp B/P (MAP) Pulse Ox O2 Delivery O2 Flow Rate FiO2 12/17/21 07:00 97.8 80 18 173/80 (111) 97 Room Air 97.8 Intake and Output 12/17/21 06:59 Intake Total 610 ml Output Total 650 ml Balance -40 ml Intake Oral 610 ml Output Urine Total 650 ml # Voids 1 # Bowel Movements 1 Physical Exam Physical Exam She is alert,sitting in bedside chair and she came to a standing position with minimal assistance using roller walker and while up standing and attempting to walk she c/o pain in her right knee joint. No tenderness to palpation over lumbar spine,sacroiliac joint ,gluteal muscles,trochanteric bursa. She had degenerative changes of her hips and lumbar spine as per x-ray. Assessment Assessment Problems Medical Problems: (1) Back pain Status: Acute (2) Weakness Status: Acute Plan Plan of Care To try her with abdominal binder as lumbar corset fro use while up and to obtain x-ray of her knees to rule out any loosening of right TKA components. Comment Review of Relevant I have reviewed the following items pauline (where applicable) has been applied. Labs Laboratory Tests Test 12/15/21 12:42 12/15/21 14:39 12/16/21 06:50 White Blood Count 14.1 x10^3/uL (4.0-11.0) 7.1 x10^3/uL (4.0-11.0) Red Blood Count 3.73 x10^6/uL (3.50-5.40) 3.73 x10^6/uL (3.50-5.40) Hemoglobin 12.0 g/dL (12.0-15.5) 12.6 g/dL (12.0-15.5) Hematocrit 35.8 % (36.0-47.0) 35.8 % (36.0-47.0) Mean Corpuscular Volume 96 fL (79-100) 96 fL (79-100) Mean Corpuscular Hemoglobin 32 pg (25-35) 34 pg (25-35) Mean Corpuscular Hemoglobin Concent 34 g/dL (31-37) 35 g/dL (31-37) Red Cell Distribution Width 13.0 % (11.5-14.5) 12.5 % (11.5-14.5) Platelet Count 362 x10^3/uL (140-400) 365 x10^3/uL (140-400) Neutrophils (%) (Auto) 78 % (31-73) 86 % (31-73) Lymphocytes (%) (Auto) 13 % (24-48) 13 % (24-48) Monocytes (%) (Auto) 7 % (0-9) 1 % (0-9) Eosinophils (%) (Auto) 1 % (0-3) 0 % (0-3) Basophils (%) (Auto) 1 % (0-3) 0 % (0-3) Neutrophils # (Auto) 11.0 x10^3/uL (1.8-7.7) 6.1 x10^3/uL (1.8-7.7) Lymphocytes # (Auto) 1.8 x10^3/uL (1.0-4.8) 0.9 x10^3/uL (1.0-4.8) Monocytes # (Auto) 1.0 x10^3/uL (0.0-1.1) 0.1 x10^3/uL (0.0-1.1) Eosinophils # (Auto) 0.2 x10^3/uL (0.0-0.7) 0.0 x10^3/uL (0.0-0.7) Basophils # (Auto) 0.1 x10^3/uL (0.0-0.2) 0.0 x10^3/uL (0.0-0.2) Erythrocyte Sedimentation Rate 49 (0-25) Sodium Level 136 mmol/L (136-145) 136 mmol/L (136-145) Potassium Level 3.9 mmol/L (3.5-5.1) 3.7 mmol/L (3.5-5.1) Chloride Level 99 mmol/L (98-107) 102 mmol/L (98-107) Carbon Dioxide Level 27 mmol/L (21-32) 25 mmol/L (21-32) Anion Gap 10 (6-14) 9 (6-14) Blood Urea Nitrogen 27 mg/dL (7-20) 24 mg/dL (7-20) Creatinine 1.1 mg/dL (0.6-1.0) 1.0 mg/dL (0.6-1.0) Estimated GFR (Cockcroft-Gault) 47.2 52.7 BUN/Creatinine Ratio 25 (6-20) 24 (6-20) Glucose Level 104 mg/dL (70-99) 174 mg/dL (70-99) Calcium Level 9.8 mg/dL (8.5-10.1) 9.6 mg/dL (8.5-10.1) Total Bilirubin 0.4 mg/dL (0.2-1.0) 0.3 mg/dL (0.2-1.0) Aspartate Amino Transf (AST/SGOT) 12 U/L (15-37) 14 U/L (15-37) Alanine Aminotransferase (ALT/SGPT) 12 U/L (14-59) 14 U/L (14-59) Alkaline Phosphatase 129 U/L (46-116) 119 U/L (46-116) Creatine Kinase 74 U/L (26-192) Troponin I High Sensitivity 11 ng/L (4-50) C-Reactive Protein, Quantitative 87.9 mg/L (0-3.3) Total Protein 7.2 g/dL (6.4-8.2) 7.4 g/dL (6.4-8.2) Albumin 3.4 g/dL (3.4-5.0) 2.9 g/dL (3.4-5.0) Albumin/Globulin Ratio 0.9 (1.0-1.7) 0.6 (1.0-1.7) Urine Collection Type U cath Urine Color (Auto) Light yellow Urine Turbidity Hazy Urine pH (Auto) 7.5 (<5.0-8.0) Urine Specific [place] 1.017 (1.000-1.030) Urine Protein (Auto) Negative mg/dL (Negative) Urine Glucose (Auto)(UA) Negative mg/dL (Negative) Urine Ketones (Auto) Negative mg/dL (Negative) Urine Blood (Auto) Negative (Negative) Urine Nitrite Negative (Negative) Urine Bilirubin (Auto) Negative (Negative) Urine Urobilinogen (Auto) Normal mg/dL (Normal) Urine Leukocyte Esterase (Auto) Negative (Negative) Urine RBC 1-2 /HPF (0-2) Urine WBC 0 /HPF (0-4) Urine Squamous Epithelial Cells Few /LPF Urine Amorphous Sediment Present /HPF Urine Bacteria 0 /HPF (0-FEW) Urine Hyaline Casts Occasional /HPF Urine Mucus Slight /LPF Medications Current Medications Ketorolac Tromethamine (Toradol 15mg Vial) 15 mg 1X ONCE IVP Last administered on 12/15/21at 12:15; Start 12/15/21 at 12:15; Stop 12/15/21 at 12:16; Status DC Acetaminophen (Tylenol) 650 mg PRN Q6HRS PRN PO MILD PAIN / TEMP > 100.3'F; Start 12/15/21 at 15:30 Ondansetron HCl (Zofran) 4 mg PRN Q4HRS PRN IVP NAUSEA/VOMITING; Start 12/15/21 at 15:30 Heparin Sodium (Porcine) (Heparin Sodium) 5,000 unit Q8HRS SQ Last administered on 12/17/21at 06:36; Start 12/15/21 at 22:00 Fentanyl Citrate (Fentanyl 2ml Vial) 25 mcg PRN Q3HRS PRN IVP SEVERE PAIN 7-10; Start 12/15/21 at 17:45 Tramadol HCl (Ultram) 50 mg PRN Q6HRS PRN PO MILD TO MODERATE PAIN Last administered on 12/16/21at 13:44; Start 12/15/21 at 17:45 Olanzapine (ZyPREXA ZYDIS) 5 mg PRN BID PRN PO ANXIETY / AGITATION; Start 12/15/21 at 17:45 Methylprednisolone Sodium Succinate (SOLU-Medrol 40MG VIAL) 40 mg Q8H IV Last administered on 12/16/21at 11:28; Start 12/15/21 at 19:00; Stop 12/16/21 at 11:01; Status DC Sodium Chloride 1,000 ml @ 125 mls/hr 1X ONCE IV Last administered on 12/15/21at 20:06; Start 12/15/21 at 18:00; Stop 12/16/21 at 01:59; Status DC Psyllium Hydrophilic Mucilloid (Metamucil Fiber Packet) 1 pkt QHS PO Last administered on 12/15/21at 20:06; Start 12/15/21 at 21:00 Senna/Docusate Sodium (Senna Plus) 2 tab PRN BID PRN PO CONSTIPATION; Start 12/15/21 at 18:15 Polyethylene Glycol (miraLAX PACKET) 17 gm DAILY PO Last administered on 2at 09:27; Start 12/16/21 at 09:00 Polyethylene Glycol (miraLAX PACKET) 17 gm 1X ONCE PO Last administered on 12/15/21at 20:06; Start 12/15/21 at 18:15; Stop 12/15/21 at 18:16; Status DC Diclofenac Sodium (Voltaren) 1 marcelino BID TP Last administered on 12/16/21at 20:59; Start 12/16/21 at 10:00 Active Scripts Active Reported Lidocaine PATCH (Lidocaine) 1 Each Adh..patch 1 Each TP DAILY REMOVE AFTER 12 HOURS Docusate Sodium 100 Mg Capsule 1 Cap PO DAILY 30 Days B-12 (Cyanocobalamin (Vitamin B-12)) 1,000 Mcg Tablet.er 1 Tab PO DAILY 30 Days Benefiber (Wheat Dextrin) 1 Each Powd.pack 1 Each PO DAILY Acetaminophen 325 Mg Tablet 2 Tab PO TID PRN PRN 24 Days Fluticasone Propionate Nasal [place] (Fluticasone Propionate) 16 Gm [place].susp 2 Sprays NS DAILY MDD n/a Losartan Potassium 100 Mg Tablet 1 Tab PO DAILY Amlodipine Besylate 2.5 Mg Tablet 1 Tab PO DAILY Hydrochlorothiazide 25 Mg Tablet 1 Tab PO DAILY Omeprazole 20 Mg Capsule.dr 1 Cap PO DAILY Memantine HCl 10 Mg Tablet 1 Tab PO DAILY Levothyroxine Sodium 112 Mcg Tablet 1 Tab PO DAILY Lovastatin 40 Mg Tablet 40 Mg PO HS Vitals/I & O Vital Sign - Last 24 Hours 12/16/21 12/16/21 12/16/21 12/16/21 11:00 15:00 19:00 19:45 Temp 97.9 97.4 97.9 97.9 97.4 97.9 Pulse 90 92 99 Resp 18 18 20 B/P (MAP) 163/74 (103) 155/74 (101) 141/66 (91) Pulse Ox 94 94 94 O2 Delivery Room Air Room Air Room Air Room Air 12/16/21 12/17/21 12/17/21 23:03 03:04 07:00 Temp 97.9 98.3 97.8 97.9 98.3 97.8 Pulse 92 93 80 Resp 20 20 18 B/P (MAP) 147/65 (92) 165/72 (103) 173/80 (111) Pulse Ox 96 96 97 O2 Delivery Room Air Room Air Room Air Intake and Output 12/16/21 12/16/21 12/17/21 14:59 22:59 06:59 Intake Total 610 ml Output Total 650 ml 0 ml Balance -40 ml 0 ml Justifications for Admission Other Justification PATRICIA PAGE MD December 17, 2021 09:46
--- NOTE | 2021-12-17 10:05 | PDOC ---
[employer] PROGRESS NOTE Date of Service DOS: DATE: 12/17/21 TIME: 10:02 Chief Complaint Chief Complaint Intractable back pain Inability to walk History of the following; hypothyroidism, hyperlipidemia, dementia, hypertension, constipation, chronic kidney disease History of Present Illness History of Present Illness 12/17/2021 Patient seen and examined Discussed with RN Discussed with Dr. Beaver physiatry Discussed with case management Chart reviewed We are hoping to discharge to skilled tomorrow (she is originally from assisted care at [facility]) 12/17/2019 Patient seen and examined Discussed with RN Chart reviewed Awaiting Dr. Beaver consultation Vitals/I&O Vitals/I&O: Vital Signs Date Time Temp Pulse Resp B/P (MAP) Pulse Ox O2 Delivery O2 Flow Rate FiO2 12/17/21 07:00 97.8 80 18 173/80 (111) 97 Room Air 97.8 I & O 12/16/21 12/16/21 12/17/21 15:00 23:00 07:00 Intake Total 610 ml Output Total 650 ml 0 ml Balance -40 ml 0 ml Physical Exam General: Alert, Cooperative, No acute distress, Other (Pleasantly confused has dementia) Heart: Regular rate Lungs: Clear Abdomen: Normal bowel sounds, Soft, No tenderness, No hepatosplenomegaly, No masses Extremities: No clubbing, No cyanosis, No edema, Normal pulses, Other Skin: No rashes Assessment and Plan Assessmemt and Plan Problems Medical Problems: (1) Back pain Status: Acute (2) Weakness Status: Acute Intractable back pain Inability to walk Right knee pain History of the following; hypothyroidism, hyperlipidemia, dementia, hypertension, constipation, chronic kidney disease Plan Physiatry would like to get a knee x-ray Continue PT OT As needed pain meds Appreciate subspecialist input Home meds DVT prophylaxis We are hoping to arrange custodial tomorrow morning Comment Review of Relevant I have reviewed the following items pauline (where applicable) has been applied. Justifications for Admission Other Justification MANDY ORDAZ III DO December 17, 2021 10:05
[2021-12-17] MEDS: DICLOFENAC SODIUM 1% TOPICAL GEL 100GM TUBE. TP SCH ×2 (10:28→20:33)
[2021-12-17 11:00] VITALS: BP 135/66
--- NOTE | 2021-12-17 12:25 | RAD ---
Exam: XR KNEE 4 VIEWS WITH PATELLA_RT History: Knee prosthesis. Rule out loosening. Comparison: 12/10/2014 Findings: Postsurgical changes from right total knee arthroplasty. Femoral and tibial components are well seate d without evidence of loosening. Postsurgical appearance of the articular surface of the patella. No acute fracture or dislocation. No aggressive osseous erosive process or periosteal elevation. No knee effusion. Atherosclerotic vascular calcifications are present. Impression: 1. Right total knee arthroplasty without evidence of complication. Electronically signed by: Jessee Rendon MD (12/17/2021 12:23 PM) [id number]
[2021-12-17 15:00] VITALS: BP 188/97
[2021-12-17 19:40] VITALS: BP 165/66
[2021-12-17] MEDS: PSYLLIUM HUSK (SUGAR FREE) 1 PKT PACKET PO SCH (20:33)
[2021-12-17] MEDS: traMADol 50 MG TABLET PO PRN (20:49)
[2021-12-17 23:31] VITALS: BP 167/90
[2021-12-18 03:00] VITALS: BP 149/72
[2021-12-18] MEDS: HEPARIN for SUB-Q USE 5,000 UNIT/ML VIAL. SQ SCH ×2 (06:04→13:22)
[2021-12-18 07:00] VITALS: BP 142/76
[2021-12-18] MEDS: POLYETHYLENE GLYCOL 3350 17 GM PACKET. PO SCH (08:18)
[2021-12-18] MEDS: DICLOFENAC SODIUM 1% TOPICAL GEL 100GM TUBE. TP SCH (08:34)
--- NOTE | 2021-12-18 09:57 | PDOC ---
[employer] PROGRESS NOTE Date of Service DOS: DATE: 12/18/21 TIME: 09:55 Chief Complaint Chief Complaint Intractable back pain Inability to walk History of the following; hypothyroidism, hyperlipidemia, dementia, hypertension, constipation, chronic kidney disease History of Present Illness History of Present Illness 12/18/2021 Patient seen and examined Discussed with RN Discussed with case management Chart reviewed The patient seems to be at her baseline She is alert but pleasantly confused eating eggs toast and potato We will go ahead and discharge to shelter 12/17/2021 Patient seen and examined Discussed with RN Discussed with Dr. Beaver physiatry Discussed with case management Chart reviewed We are hoping to discharge to skilled tomorrow (she is originally from assisted care at [facility]) 12/17/2019 Patient seen and examined Discussed with RN Chart reviewed Awaiting Dr. Beaver consultation Vitals/I&O Vitals/I&O: Vital Signs Date Time Temp Pulse Resp B/P (MAP) Pulse Ox O2 Delivery O2 Flow Rate FiO2 12/18/21 07:59 Room Air 12/18/21 03:00 98.1 98 18 149/72 (97) 94 98.1 I & O 12/17/21 12/17/21 12/18/21 15:00 23:00 07:00 Intake Total 400 ml 100 ml 1000 ml Balance 400 ml 100 ml 1000 ml Physical Exam General: Alert, Cooperative, No acute distress, Other (Pleasantly confused has dementia) Heart: Regular rate Lungs: Clear Abdomen: Normal bowel sounds, Soft, No tenderness, No hepatosplenomegaly, No masses Extremities: No clubbing, No cyanosis, No edema, Normal pulses, Other Skin: No rashes Labs Labs: Laboratory Tests Test 12/17/21 20:50 SARS-CoV-2 Antigen (Rapid) Negative (NEGATIVE) Assessment and Plan Assessmemt and Plan Problems Medical Problems: (1) Back pain Status: Acute (2) Weakness Status: Acute Intractable back pain Inability to walk Right knee pain History of the following; hypothyroidism, hyperlipidemia, dementia, hypertension, constipation, chronic kidney disease Plan Discharge to shelter later today For now continue the following; Continue PT OT As needed pain meds Appreciate subspecialist input Home meds DVT prophylaxis We are hoping to arrange shelter later today Comment Review of Relevant I have reviewed the following items pauline (where applicable) has been applied. Justifications for Admission Other Justification MANDY ORDAZ III DO December 18, 2021 09:57
[2021-12-18] MEDS ORDERED: TRAM50TA PO (10:02)
[2021-12-18] MEDS ORDERED: Diclofenac Sodium TP (10:02)
--- NOTE | 2021-12-18 10:04 | SNU/HH DC ---
DISCHARGE ORDERS DISCHARGE INFORMATION: FINAL DIAGNOSIS Problems Medical Problems: (1) Back pain Status: Acute (2) Weakness Status: Acute CONDITION ON DISCHARGE: Stable CODE STATUS: Code Status: Full RESIDENTIAL: SNF STAY <30 DAYS: Yes HOSPICE: HOSPICE: No HOSPICE EVAL & TREAT: No POST DISCHARGE ORDERS: ACTIVITY ORDERS: Activity as tolerated WEIGHT BEARING STATUS: Full weight bearing, As tolerated BATHING ORDERS: Shower-keep dressing dry, No Tub Bath until see DIET AFTER DISCHARGE: Cardiac WOUND/INCISION CARE: Ice to area for comfort, Keep wound/cast CDI, Keep wound elevated, Do not change dressing CHECKS AFTER DISCHARGE: CHECKS AFTER DISCHARGE: Check blood press - daily TREATMENT/EQUIPMENT ORDERS: Physical Therapy For: Evalulation/Treatment Occupational Therapy For: Evaluation/Treatment DISCHARGE MEDICATIONS: Home Meds Active Scripts [Diclofenac Sodium 1% Topical] 100 GM GEL..GRAM. No Conflict Check, 1 SANDY TP BID for . for 30 Days, #1 EACH Prov:CASTLE,NIAL K III DO 12/18/21 Tramadol Hcl (TRAMADOL HCL) 50 Mg Tablet, 50 MG PO PRN Q6HRS PRN for MILD TO MODERATE PAIN for 14 Days, #30 TAB Prov:CASTLE,NIAL K III DO 12/18/21 Reported Medications Lidocaine (Lidocaine PATCH ) 1 Each Adh..patch, 1 EACH TP DAILY for FOR LOCAL PAIN, PATCH REMOVE AFTER 12 HOURS 12/15/21 Docusate Sodium (DOCUSATE SODIUM) 100 Mg Capsule, 1 CAP PO DAILY for constipation for 30 Days, #30 CAP 0 Refills 12/15/21 Cyanocobalamin (Vitamin B-12) (B-12) 1,000 Mcg Tablet.er, 1 TAB PO DAILY for supplement for 30 Days, #30 TAB 0 Refills 12/15/21 Wheat Dextrin (Benefiber) 1 Each Powd.pack, 1 EACH PO DAILY for constipation, PKT 12/15/21 Acetaminophen (ACETAMINOPHEN) 325 Mg Tablet, 2 TAB PO TID PRN PRN for pain or fever for 24 Days, #100 TAB 0 Refills 12/15/21 Fluticasone Propionate (FLUTICASONE PROPIONATE NASAL SPRAY) 16 Gm [place].susp, 2 SPRAYS NS DAILY for allergies MDD n/a 12/15/21 Losartan Potassium (LOSARTAN POTASSIUM) 100 Mg Tablet, 1 TAB PO DAILY for bp 12/15/21 Amlodipine Besylate (AMLODIPINE BESYLATE) 2.5 Mg Tablet, 1 TAB PO DAILY for bp 12/15/21 Hydrochlorothiazide (Hydrochlorothiazide) 25 Mg Tablet, 1 TAB PO DAILY for bp 12/15/21 Omeprazole (OMEPRAZOLE) 20 Mg Capsule.dr, 1 CAP PO DAILY for indigestion 12/15/21 Memantine HCl (Memantine HCl) 10 Mg Tablet, 1 TAB PO DAILY for memory 12/15/21 Levothyroxine Sodium (LEVOTHYROXINE SODIUM) 112 Mcg Tablet, 1 TAB PO DAILY for thyroid 12/15/21 Lovastatin (LOVASTATIN) 40 Mg Tablet, 40 MG PO HS, TAB 03/31/18 Discontinued Reported Medications Memantine Hcl (NAMENDA) 10 Mg Tablet, 10 MG PO DAILY, TAB 03/31/18 Losartan/Hydrochlorothiazide (LOSARTAN-HCTZ 100-25 MG TAB) 1 Each Tablet, 1 EACH PO DAILY, TAB 03/31/18 Cyanocobalamin (Vitamin B-12) (B-12) 1,000 Mcg Tablet, 1000 MCG PO DAILY 11/13/14 Guar Gum (BENEFIBER) 1 Each Packet, 1 EACH PO DAILY, PACKET 11/13/14 Levothyroxine Sodium (LEVOTHYROXINE SODIUM) 100 Mcg Tablet, 100 MCG PO DAILYAC for THYROID SUPPLEMENT, TAB 0 Refills 11/13/14 MANDY ORDAZ III DO December 18, 2021 10:04
[2021-12-18 11:00] VITALS: BP 193/99
[2021-12-18] MEDS ORDERED: BUPIVACAINE MPF 0.25% 10 ML VIAL. IJ ONE (14:00)
[2021-12-18] MEDS ORDERED: TRIAMCINOLONE PRES.FREE 40 MG/ML VIAL. INT ART ONE (14:00)
--- NOTE | 2021-12-18 14:32 | PDOC ---
PROGRESS NOTES Date of Service DATE: 12/18/21 TIME: 14:25 Subjective Subjective She admits continued low back pain with movement. Objective Objective Vital Signs Date Time Temp Pulse Resp B/P (MAP) Pulse Ox O2 Delivery O2 Flow Rate FiO2 12/18/21 07:59 Room Air 12/18/21 07:00 98.5 82 20 142/76 (98) 96 98.5 Intake and Output 12/18/21 07:00 Intake Total 1500 ml Balance 1500 ml Intake Oral 1500 ml # Voids 13 # Bowel Movements 3 Physical Exam Physical Exam She is alert,supine in bed and had abdominal binder higher up in her back and s he had localized tenderness to palpation over left sacroiliac joint area and SLR test is negative bilaterally. She continues to require physical assistance fro bed mobility and transfers. X-ray right knee,no evidence of loesening of prosthetic components. Assessment Assessment Problems Medical Problems: (1) Back pain Status: Acute (2) Weakness Status: Acute Plan Plan of Care At her request,I have injected painful left sacroiliac joint area under aseptic skin technique with alcohol skin prep,using 2 ml of 0.25% marcaine solution mixed with 1 ml of o.25% marcaine solution and she tolerated the procedure satisfactorily without any side effects. To continue present rehab efforts while waiting for insurance approval for transfer to senior care care unit. Comment Review of Relevant I have reviewed the following items pauline (where applicable) has been applied. Labs Laboratory Tests Test 12/17/21 20:50 SARS-CoV-2 Antigen (Rapid) Negative (NEGATIVE) Laboratory Tests Test 12/17/21 20:50 SARS-CoV-2 Antigen (Rapid) Negative (NEGATIVE) Medications Current Medications Ketorolac Tromethamine (Toradol 15mg Vial) 15 mg 1X ONCE IVP Last administered on 12/15/21at 12:15; Start 12/15/21 at 12:15; Stop 12/15/21 at 12:16; Status DC Acetaminophen (Tylenol) 650 mg PRN Q6HRS PRN PO MILD PAIN / TEMP > 100.3'F; Start 12/15/21 at 15:30 Ondansetron HCl (Zofran) 4 mg PRN Q4HRS PRN IVP NAUSEA/VOMITING; Start 12/15/21 at 15:30 Heparin Sodium (Porcine) (Heparin Sodium) 5,000 unit Q8HRS SQ Last administered on 12/18/21at 06:04; Start 12/15/21 at 22:00 Fentanyl Citrate (Fentanyl 2ml Vial) 25 mcg PRN Q3HRS PRN IVP SEVERE PAIN 7-10; Start 12/15/21 at 17:45 Tramadol HCl (Ultram) 50 mg PRN Q6HRS PRN PO MILD TO MODERATE PAIN Last administered on 12/17/21at 20:49; Start 12/15/21 at 17:45 Olanzapine (ZyPREXA ZYDIS) 5 mg PRN BID PRN PO ANXIETY / AGITATION; Start 12/15/21 at 17:45 Methylprednisolone Sodium Succinate (SOLU-Medrol 40MG VIAL) 40 mg Q8H IV Last administered on 12/16/21at 11:28; Start 12/15/21 at 19:00; Stop 12/16/21 at 11:01; Status DC Sodium Chloride 1,000 ml @ 125 mls/hr 1X ONCE IV Last administered on 12/15/21at 20:06; Start 12/15/21 at 18:00; Stop 12/16/21 at 01:59; Status DC Psyllium Hydrophilic Mucilloid (Metamucil Fiber Packet) 1 pkt QHS PO Last administered on 12/15/21at 20:06; Start 12/15/21 at 21:00 Senna/Docusate Sodium (Senna Plus) 2 tab PRN BID PRN PO CONSTIPATION; Start 12/15/21 at 18:15 Polyethylene Glycol (miraLAX PACKET) 17 gm DAILY PO Last administered on 12/16/21at 09:27; Start 12/16/21 at 09:00 Polyethylene Glycol (miraLAX PACKET) 17 gm 1X ONCE PO Last administered on 12/15/21at 20:06; Start 12/15/21 at 18:15; Stop 12/15/21 at 18:16; Status DC Diclofenac Sodium (Voltaren) 1 aakash BID TP Last administered on 12/17/21at 20:33; Start 12/16/21 at 10:00 Triamcinolone Acetonide (Kenalog-40) 40 mg 1X ONCE INT ART ; Start 12/18/21 at 14:00; Stop 12/18/21 at 14:01; Status DC Bupivacaine HCl (Sensorcaine-Mpf 0.25%) 10 ml 1X ONCE IJ ; Start 12/18/21 at 14:00; Stop 12/18/21 at 14:01; Status DC Active Scripts Active [Diclofenac Sodium] 100 GM Gel..gram. 1 Aakash TP BID 30 Days Tramadol Hcl 50 Mg Tablet 50 Mg PO PRN Q6HRS PRN 14 Days Reported Lidocaine PATCH (Lidocaine) 1 Each Adh..patch 1 Each TP DAILY REMOVE AFTER 12 HOURS Docusate Sodium 100 Mg Capsule 1 Cap PO DAILY 30 Days B-12 (Cyanocobalamin (Vitamin B-12)) 1,000 Mcg Tablet.er 1 Tab PO DAILY 30 Days Benefiber (Wheat Dextrin) 1 Each Powd.pack 1 Each PO DAILY Acetaminophen 325 Mg Tablet 2 Tab PO TID PRN PRN 24 Days Fluticasone Propionate Nasal [place] (Fluticasone Propionate) 16 Gm [place].susp 2 Sprays NS DAILY MDD n/a Losartan Potassium 100 Mg Tablet 1 Tab PO DAILY Amlodipine Besylate 2.5 Mg Tablet 1 Tab PO DAILY Hydrochlorothiazide 25 Mg Tablet 1 Tab PO DAILY Omeprazole 20 Mg Capsule.dr 1 Cap PO DAILY Memantine HCl 10 Mg Tablet 1 Tab PO DAILY Levothyroxine Sodium 112 Mcg Tablet 1 Tab PO DAILY Lovastatin 40 Mg Tablet 40 Mg PO HS Vitals/I & O Vital Sign - Last 24 Hours 12/17/21 12/17/21 12/17/21 12/17/21 15:00 19:40 20:00 20:49 Temp 97.8 97.0 97.8 97.0 Pulse 90 89 Resp 18 18 15 B/P (MAP) 188/97 (127) 165/66 (99) Pulse Ox 97 98 98 O2 Delivery Room Air Room Air Room Air Room Air 12/17/21 12/17/21 12/18/21 12/18/21 21:34 23:31 03:00 07:00 Temp 97.8 98.1 98.5 97.8 98.1 98.5 Pulse 100 98 82 Resp 15 18 18 20 B/P (MAP) 167/90 (115) 149/72 (97) 142/76 (98) Pulse Ox 98 93 94 96 O2 Delivery Room Air Room Air Room Air Room Air 12/18/21 07:59 O2 Delivery Room Air Intake and Output 12/17/21 12/17/21 12/18/21 15:00 23:00 07:00 Intake Total 400 ml 100 ml 1000 ml Balance 400 ml 100 ml 1000 ml Justifications for Admission Other Justification PATRICIA PAGE MD December 18, 2021 14:32
[2021-12-18 15:00] VITALS: BP_SYST 132; BP_SYST 170; BP_DIAS 47; BP_DIAS 79
--- NOTE | 2021-12-18 15:01 | DS ---
DATE OF DISCHARGE: 12/18/2021 ADMISSION DIAGNOSES: Intractable back pain, inability to walk, history of hypothyroidism, dementia, hyperlipidemia, hypertension, constipation, and chronic kidney disease. DISCHARGE DIAGNOSIS: Resolving intractable back pain. CONSULTS: Dr. Beaver. PROCEDURES: None. HOSPITAL COURSE: The patient is a pleasant elderly female who has multiple comorbidities including dementia. She basically presented with intractable back pain. We admitted her, gave her p.r.n. pain meds, physical therapy and occupational therapy. We consulted Dr. Beaver, Physiatry. Over the past couple of days, she slowly returned to baseline. Today, I saw and examined her. She is doing better. We plan to discharge to care home. DISPOSITION: To Custodial. ACTIVITY: As tolerated. DIET: Low sodium. DISCHARGE MEDICATIONS: Please see the MRAD. P.r.n. Ultram 50 q.6, Tylenol p.r.n., amlodipine 2.5 a day, B12, docusate, fluticasone, hydrochlorothiazide 25 a day, Synthroid 112 a day, lidocaine patches, losartan 100 a day, lovastatin 40 a day, memantine 10 a day, omeprazole 20 a day, and fiber. TOTAL TIME: 31 minutes. RANGEL/[facility] [place] DR: RANGEL/ciro TID: [id number]
--- NOTE | 2021-12-18 17:10 | NUR ---
Discharge Note: PIETRO WATKINS Discharge instructions and discharge home medications reviewed with Other facility and a copy given. All questions have been answered and understanding verbalized. Report given to CYNDI Jefferson at [facility] . The following instructions and handouts were given: information about activity, labs, images, medications. Discontinued lines and drains: IV line in left wrist removed, catheter tip intact. Patient discharged to [facility] with transportation supervisor, wheelchair used for mobility to discharge vehicle.
== END 2021-12-18 17:10 | DRG 552 ==
LOC: ER 11:41 → 4 NORTH 16:13
PROVIDERS: ADMIT Internal Medicine; ATTEND Internal Medicine
DX: M51.16 Intervertebral disc disorders with radiculopathy, lumbar region (principal); N18.9 Chronic kidney disease, unspecified; E03.9 Hypothyroidism, unspecified; E78.00 Pure hypercholesterolemia, unspecified; E78.5 Hyperlipidemia, unspecified; F02.80 Dementia in other diseases classified elsewhere, unspecified severity, without behavioral disturbance, psychotic disturbance, mood disturbance, and anxiety; G30.9 Alzheimer's disease, unspecified; G62.9 Polyneuropathy, unspecified; I12.9 Hypertensive chronic kidney disease with stage 1 through stage 4 chronic kidney disease, or unspecified chronic kidney disease; I70.0 Atherosclerosis of aorta; K59.09 Other constipation; M17.12 Unilateral primary osteoarthritis, left knee; M47.26 Other spondylosis with radiculopathy, lumbar region; Z66 Do not resuscitate; Z82.49 Family history of ischemic heart disease and other diseases of the circulatory system; Z90.49 Acquired absence of other specified parts of digestive tract; Z90.710 Acquired absence of both cervix and uterus; Z96.651 Presence of right artificial knee joint; Z99.3 Dependence on wheelchair
CPT/HCPCS: 36415; 71046; 72100; 72131; 73521; 73564; 80053; 81001; 82550; 84484; 85025; 85651; 86140; 87426; 96360; J1644; J1885; J2920; J3301; J3490; J7030; U0003; 97110-GP; 97530-GP; 97535-GO; 99285-25; G0378